=== PATIENT | male | born 1965 | race Caucasian/White ===

== ENCOUNTER 2020-06-26 09:13 | Outpatient (REF) | payer OTHER, SELFPAY ==
[2020-06-26 11:29] LABS: Alanine Aminotransferase 19 U/L (0-40); Albumin Level 4.5 g/dL (3.5-5.0); Alkaline Phosphatase 66 U/L (39-117); Anion Gap 14 (12-20); Aspartate Amino Transferase 18 U/L (5-37); Bilirubin Total 0.4 mg/dL (0.0-1.0); Blood Urea Nitrogen 16 mg/dL (9-16); Carbon Dioxide 27 mmol/L (22-29); Chloride 107 mmol/L (96-108); Cholesterol 197 mg/dL; Estimated Glomerular Filt Rate 60; Glucose Random 105 mg/dL (60-115); HDL Cholesterol 33 mg/dL; LDL Cholesterol Calculated 137 mg/dl; Potassium 4.7 mmol/l (3.3-5.1); Sodium 143 mmol/L (135-145); Total Protein 7.4 g/dL (6.5-8.0); Triglycerides 138 mg/dL
== END 2020-06-26 09:14 | disposition home or self-care (01) ==
LOC: HO.LAB 09:13
PROVIDERS: PCP Internal Medicine; Visit Provider Internal Medicine
DX: Z00.01 Encounter for general adult medical examination with abnormal findings (principal); E78.2 Mixed hyperlipidemia; I10 Essential (primary) hypertension; Z91.14 Patient's other noncompliance with medication regimen
CPT/HCPCS: 36415; 80053; 80061; 84443

== ENCOUNTER 2020-06-28 15:05 | Emergency (ER) | payer OTHER, SELFPAY ==
[2020-06-28 15:11] VITALS: BP 145/93; PULSE 82; RESP 20; TEMP 36.6; O2SAT 100; BMI 30.7
--- NOTE | 2020-06-28 15:28 | PC.NURSE ---
A&O X 3, AMBULATORY WITH STEADY GAIT, CONTINUOUSLY SIPPING WATER STATES ONLY THING THAT TAKES PAIN AWAY, RN OFFERED COLD PACK, DECLINED STATES MAKES PAIN WORSE, HOB ELEVATED, AWAITING EXAM, STATES INJURY OCCURRED 2 DAYS AGO AND HE HIT HIS HEAD SO HARD HE EXPERIENCED LOC
--- NOTE | 2020-06-28 16:03 | CT_ITS ---
EXAMINATION: CT CERVICAL SPINE WITHOUT CONTRAST CLINICAL INFORMATION: Persistent pain following fall 2 days ago. COMPARISON: None TECHNIQUE: Multidetector volumetric CT imaging of the cervical spine is performed without contrast in the axial plane. Additional 2D reformatted coronal and sagittal images are generated on the CT workstation and uploaded to PACS. This CT examination was performed using dose optimization techniques as appropriate, variously including the following: *Automated exposure control *Adjustment of mA and/or kV according to patient size (this includes techniques or standardized protocols for targeted exams where dose is matched to indication/reason for exam; i.e. extremities or head) *Use of iterative reconstruction technique DLP: 601 mGy-cm FINDINGS: There is no vertebral compression fracture, fracture line, spondylolisthesis, or prevertebral soft tissue swelling. The craniocervical junction appears normal. The odontoid appears intact. There is straightening and mild reversal cervical lordosis which may related to muscle spasm. There are mild degenerative disc changes C4-C5 and C5-C6. There is no apical pneumothorax. CT/CT cervical spine wo con IMPRESSION: 1. No acute bony abnormality or prevertebral soft tissue swelling. 2. Mild reversal cervical lordosis. Degenerative disc changes mid cervical spine.
--- NOTE | 2020-06-28 16:03 | CT_ITS ---
EXAMINATION: CT HEAD, NONCONTRAST CT FACIAL BONES CLINICAL INFORMATION: Persistent pain left side since fall 2 days ago. COMPARISON: CT head noncontrast 12/07/2018. TECHNIQUE: Contiguous axial imaging was performed from the skull base to vertex without intravenous administration of contrast. Additional 2-D coronal and sagittal reformatted images are generated on the CT workstation and uploaded to PACS. CT facial bones is also performed in the axial plane with additional 2-D coronal and sagittal reformatted images generated on the CT workstation and uploaded to PACS. These CT examinations were performed using dose optimization techniques as appropriate, variously including the following: *Automated exposure control *Adjustment of mA and/or kV according to patient size (this includes techniques or standardized protocols for targeted exams where dose is matched to indication/reason for exam; i.e. extremities or head) *Use of iterative reconstruction technique DLP: 748 mGy-cm (head) 559 mGy-cm (facial) FINDINGS: Head: There is no intracranial hemorrhage, hematoma, or extra-axial fluid collection. The ventricles are normal in size. There is no hydrocephalus, edema, or mass effect. The millan-white matter differentiation appears symmetric. There is no visible acute territorial infarct or mass lesion. The calvarium appears intact. There is no pneumocephalus or orbital emphysema. The visualized sinuses and middle ears and mastoid air cells show no significant mucosal thickening. There are no air-fluid levels. Facial: There is no fracture. A fine linear lucency superior lateral right orbital roof is likely nutrient canal. There is no adjacent soft tissue swelling either superficially or deep side. Patient's symptoms are on the contralateral left. The orbital rims and floors, zygomatic arches, pterygoid plates, nasal bone appear intact. Mandible intact. The globes and retrobulbar soft tissues are unremarkable. There is some scattered mucosal thickening ethmoid air cells. The sinuses and middle ears and mastoids show no air-fluid levels. CT/CT facial bones wo con IMPRESSION: 1. No acute intracranial abnormality. 2. No air-fluid levels sinuses, middle ears, or mastoid.
--- NOTE | 2020-06-28 16:29 | ED_ITS ---
HPI - General Adult General Chief complaint: General Medical <FILOMENA Andino Last Filed: 06/28/20 17:48> Stated complaint: fall <FILOMENA Andino Last Filed: 06/28/20 17:48> Time Seen by Provider: 06/28/20 15:44 <FILOMENA Andino Last Filed: 06/28/20 17:48> Source: patient <FILOMENA Andino Last Filed: 06/28/20 17:48> Mode of arrival: ambulatory <FILOMENA Andino Last Filed: 06/28/20 17:48> Limitations: other (Very vague and poor historian) <FILOMENA Andino Last Filed: 06/28/20 17:48> History of Present Illness HPI narrative: 55yoM c PMHx of BPH and kidney stones with recent hernia repair presenting to the ED with complaints of left facial pain for the past 2 days after he fell down his basement stairs, hit his head and had LOC for a few seconds. Patient reports persistent pain to the left face/swelling. Denies any preceding symptoms prior to the fall which include any dizziness, headaches, changes in vision, paresthesias, chest pain or shortness of breath. Denies any other symptoms complaints or concerns at this time. Denies any other injuries. Patient being vague about why and how he fell. <FILOMENA Andino Last Filed: 06/28/20 17:48> Related Data Home medications: Previous Rx's Medication Instructions Recorded oxycodone 5 mg PO Q8H PRN #10 tab 06/28/20 <FILOMENA Andino Last Filed: 06/28/20 17:48> Allergies/adverse reactions: Allergies Allergy/AdvReac Type Severity Reaction Status Date / Time codeine Allergy Unknown Verified 01/31/20 00:00 No Known Allergies Allergy Unverified 03/02/20 16:36 [No Known Allergies*] <FILOMENA Andino Last Filed: 06/28/20 17:48> Review of Systems Review of Systems: Constitutional : No changes in activity, No lethargy, No recent prior head injury, No agitation, No increased fussiness ENT/Mouth : No Ear Pain, No Nasal discharge/drainage Eyes: No Eye Pain, No Swelling, No Redness, No Foreign Body, No Vision Changes Cardiovascular : No Chest Pain, No SOB Respiratory : No Cough Gastrointestinal : No Nausea, No Vomiting, No abdominal Pain Genitourinary : No Dysuria, No Urinary Frequency, No Urinary Incontinence, No Urgency, No Flank Pain Musculoskeletal : + joint pain, No neck stiffness, No back pain/injury Skin : No lacerations Neuro : No unsteady gait, No Paresthesias, + Loss of Consciousness, No altered mental status, No Headache <FILOMENA Andino - Last Filed: 06/28/20 17:48> Yes all other systems are reviewed and are negative <FILOMENA Andino - Last Filed: 06/28/20 17:48> [facility] Past Medical History Attestation statement: The following information was validated with the patient. <FILOMENA Andino - Last Filed: 06/28/20 17:48> Social History Social History: Social History Advance Directives: No Advance Directives Information Provided: Yes <FILOMENA Andino - Last Filed: 06/28/20 17:48> Physical Exam Vital Signs: Vital Signs: Last Vital Signs Temp 97.9 F 06/28/20 15:11 Pulse 70 06/28/20 17:25 Resp 16 06/28/20 17:25 BP 136/91 H 06/28/20 17:25 Pulse Ox 98 06/28/20 17:25 Body Mass Index 30.7 Vital signs have been reviewed as normal and appeared to be correct. Blood pressure normal. Heart rate normal. Respiration rate normal. Temperature normal. Oxygen saturation normal. <FILOMENA Andino - Last Filed: 06/28/20 17:48> Vital Signs: Last Vital Signs Temp 97.9 F 06/28/20 15:11 Pulse 70 06/28/20 17:25 Resp 16 06/28/20 17:25 BP 136/91 H 06/28/20 17:25 Pulse Ox 98 06/28/20 17:25 Body Mass Index 30.7 <Tong Mejias MD - Last Filed: 07/07/20 00:00> Appearance: Alert. Oriented X3. No acute distress. Head: Patient with tenderness to palpation to left maxillary/sinuses/nostril with mild contusion abrasion noted. Otherwise the rest of the facial exam is within normal limits. Able to rotate head bilaterally. Eyes: PERRLA. EOMI. No nystagmus noted. Conjunctiva and sclera normal. Eyelids normal. Corneal reflex normal. ENT: EAC normal. TM's Normal. No septal hematoma or hemotympanum noted. Hearing normal. Pharynx normal. Uvula midline. tongue midline. Moist mucous membranes. No trismus noted. No drooling noted. No muffled voice noted. Neck: Normal inspection. Neck supple. FROM. No adenopathy. No meningeal signs. CVS: Normal heart rate and rhythm. Heart sound normal. No murmurs noted. Pulses normal throughout. Respiratory: No respiratory distress. Painless inspiration. Breath sounds normal. No wheezes/rales/rhonchi noted. Chest nontender. No accessory muscle usage noted or decreased air movement noted. Back: Full range of motion noted. Skin: Skin warm and dry. Normal skin color. Normal skin turgor. No r ashes/lesions/lacerations noted. Extremities: No lower extremity edema. Extremities exhibit normal range of motion. Extremities nontender. Able to shrug shoulders bilaterally and keep up against resistance. Neuro: Oriented X 3. No motor deficit. No sensory deficit. Reflexes normal. Moving all extremities. No focal motor deficits. Cranial nerves II-XI intact bilaterally. Facial strength normal. Normal cognition. Speech normal. Gait normal. Strength 5/5 throughout. No pronator drift. No tremor noted. No fasciculations noted. Muscle tone normal throughout. <FILOMENA Andino - Last Filed: 06/28/20 17:48> Course Course Course Narrative: 55-year-old male presenting to the ED after a fall down his stairs in the basement with loss of consciousness for a few seconds was not witnessed. Reports persistent pain to the left face around the eye/cheek/nose area. Denies any other injuries complaints or concerns at this time. Reports that he took Percocet prior to arrival and no symptomatic relief that is why he came here. He reports that the pain is relief with drinking water. Worse with everything. Denies any other injuries complaints or concerns at this time. - patient is alert and oriented x3. Not in any acute distress. No focal we akness noted. - basic labs obtained and all within normal limits. CT scan of facial/brain/cervical spine revealed chronic changes no acute processes noted. - I explained to the patient that he had most likely contusions to the face and no broken bones although patient was very upset and reported that there is no way that he needs morphine for his pain I explained to him that I gave him a dose of morphine while he was here in the ER but I will not be giving him a prescription for morphine as he does not have any broken bones he has most likely a contusion. Therefore we would be discharging him with oxycodone. Patient was not happy with this although he understood and agree with the plan. Instructed patient to return if any new or worsening symptoms to follow up with primary care provider. Patient understands agrees the plan. <FILOMENA Andino - Last Filed: 06/28/20 17:48> I have reviewed the chart <Tong Mejias MD - Last Filed: 07/07/20 00:00> Medical Decision Making Lab Data Result diagrams: : 06/28/20 16:29 06/28/20 16:29 <FILOMENA Andino - Last Filed: 06/28/20 17:48> Labs: Lab Results 06/28/20 06/28/20 06/28/20 Range/Units 16:29 16:29 16:29 WBC 7.6 (4.8-10.8) X10*3/uL RBC 4.54 L (4.60-5.80) X10*6/uL Hgb 13.5 L (14.0-18.0) g/dl Hct 40.5 L (42-52) % MCV 89.2 (80-98) fL MCH 29.7 (27.0-33.0) pg MCHC 33.3 (31.0-36.0) g/dl RDW 12.6 (11.0-16.0) % Plt Count 251 (160-400) X10*3/uL MPV 10.4 (9.4-12.4) fL Immature Gran % (Auto) 0.3 (0.0-0.4) % Neut % (Auto) 56.8 (45-73) % Lymph % (Auto) 33.1 (20-40) % Gonzales % (Auto) 7.9 (2-11) % Eos % (Auto) 1.6 (0-4) % Baso % (Auto) 0.3 (0-2) % Lymph # (Auto) 2.5 (1.2-4.9) X10*3/uL Gonzales # (Auto) 0.6 (0.1-1.2) X10*3/uL Eos # (Auto) 0.1 (0.0-0.4) X10*3/uL Baso # (Auto) 0.0 (0.0-0.2) X10*3/uL Abs Immat Gran (auto) 0.02 (0.00-0.03) X10*3/uL Absolute Neuts (auto) 4.3 (2.0-8.3) X10*3/uL Absolute Nucleated RBC 0.000 (0.0-0.012) X10*3/uL Nucleated RBC % (auto) 0.0 (0.0-0.2) /100WBC PT 12.2 (10.8-13.0) SEC INR 1.0 (0.9-1.1) Sodium 142 (135-145) mmol/L Potassium 4.6 (3.3-5.1) mmol/l Chloride 105 (96-108) mmol/L Carbon Dioxide 30 H (22-29) mmol/L Anion Gap 12 (12-20) BUN 18 H (9-16) mg/dL Creatinine 1.33 (0.5-1.4) mg/dL Estim Creat Clear Calc 76.4 Estimated GFR 56 Random Glucose 88 (60-115) mg/dL Calcium 9.1 (8.4-10.2) mg/dL Magnesium 2.2 (1.6-2.6) mg/dL <FILOMENA Andino - Last Filed: 06/28/20 17:48> Lab Results 06/28/20 06/28/20 06/28/20 Range/Units 16:29 16:29 16:29 WBC 7.6 (4.8-10.8) X10*3/uL RBC 4.54 L (4.60-5.80) X10*6/uL Hgb 13.5 L (14.0-18.0) g/dl Hct 40.5 L (42-52) % MCV 89.2 (80-98) fL MCH 29.7 (27.0-33.0) pg MCHC 33.3 (31.0-36.0) g/dl RDW 12.6 (11.0-16.0) % Plt Count 251 (160-400) X10*3/uL MPV 10.4 (9.4-12.4) fL Immature Gran % (Auto) 0.3 (0.0-0.4) % Neut % (Auto) 56.8 (45-73) % Lymph % (Auto) 33.1 (20-40) % Gonzales % (Auto) 7.9 (2-11) % Eos % (Auto) 1.6 (0-4) % Baso % (Auto) 0.3 (0-2) % Lymph # (Auto) 2.5 (1.2-4.9) X10*3/uL Gonzales # (Auto) 0.6 (0.1-1.2) X10*3/uL Eos # (Auto) 0.1 (0.0-0.4) X10*3/uL Baso # (Auto) 0.0 (0.0-0.2) X10*3/uL Abs Immat Gran (auto) 0.02 (0.00-0.03) X10*3/uL Absolute Neuts (auto) 4.3 (2.0-8.3) X10*3/uL Absolute Nucleated RBC 0.000 (0.0-0.012) X10*3/uL Nucleated RBC % (auto) 0.0 (0.0-0.2) /100WBC PT 12.2 (10.8-13.0) SEC INR 1.0 (0.9-1.1) Sodium 142 (135-145) mmol/L Potassium 4.6 (3.3-5.1) mmol/l Chloride 105 (96-108) mmol/L Carbon Dioxide 30 H (22-29) mmol/L Anion Gap 12 (12-20) BUN 18 H (9-16) mg/dL Creatinine 1.33 (0.5-1.4) mg/dL Estim Creat Clear Calc 76.4 Estimated GFR 56 Random Glucose 88 (60-115) mg/dL Calcium 9.1 (8.4-10.2) mg/dL Magnesium 2.2 (1.6-2.6) mg/dL <Tong Mejias MD - Last Filed: 07/07/20 00:00> Imaging Data Brain/facial bones CT scan: Attestation: I personally reviewed and interpreted this imaging study as follows: <FILOMENA Andino - Last Filed: 06/28/20 17:48> Radiologist's impression: FINDINGS: Head: There is no intracranial hemorrhage, hematoma, or extra-axial fluid collection. The ventricles are normal in size. There is no hydrocephalus, edema, or mass effect. The millan-white matter differentiation appears symmetric. There is no visible acute territorial infarct or mass lesion. The calvarium appears intact. There is no pneumocephalus or orbital emphysema. The visualized sinuses and middle ears and mastoid air cells show no significant mucosal thickening. There are no air-fluid levels. Facial: There is no fracture. A fine linear lucency superior lateral right orbital roof is likely nutrient canal. There is no adjacent soft tissue swelling either superficially or deep side. Patient's symptoms are on the contralateral left. The orbital rims and floors, zygomatic arches, pterygoid plates, nasal bone appear intact. Mandible intact. The globes and retrobulbar soft tissues are unremarkable. There is some scattered mucosal thickening ethmoid air cells. The sinuses and middle ears and mastoids show no air-fluid levels. CT/CT facial bones wo con IMPRESSION: 1. No acute intracranial abnormality. 2. No air-fluid levels sinuses, middle ears, or mastoid. <FILOMENA Andino - Last Filed: 06/28/20 17:48> Cervical spine CT: Attestation: I personally reviewed and interpreted this imaging study as follows: <FILOMENA Andino - Last Filed: 06/28/20 17:48> Radiologist's impression: FINDINGS: There is no vertebral compression fracture, fracture line, spondylolisthesis, or prevertebral soft tissue swelling. The craniocervical junction appears normal. The odontoid appears intact. There is straightening and mild reversal cervical lordosis which may related to muscle spasm. There are mild degenerative disc changes C4-C5 and C5-C6. There is no apical pneumothorax. CT/CT cervical spine wo con IMPRESSION: 1. No acute bony abnormality or prevertebral soft tissue swelling. 2. Mild reversal cervical lordosis. Degenerative disc changes mid cervical spine. <FILOMENA Andino - Last Filed: 06/28/20 17:48> Discharge Plan Discharge Clinical Impression: Fall, Contusion of face <FILOMENA Andino - Last Filed: 06/28/20 17:48> Patient Disposition: Home, Self-Care <FILOMENA Andino - Last Filed: 06/28/20 17:48> Instructions: Contusion in Adults (ED), Fall Prevention (ED) <FILOMENA Andino - Last Filed: 06/28/20 17:48> Prescriptions: New oxycodone 5 mg tablet 5 mg PO Q8H PRN (Reason: pain) Qty: 10 RF: 0 <FILOMENA Andino - Last Filed: 06/28/20 17:48> Referrals: Ariana Montgomery MD [Primary Care Provider] - 2 days <FILOMENA Andino - Last Filed: 06/28/20 17:48> Interventions: ED Discharge Assessment Last Done: 06/28/20 18:01 <FILOMENA Andino - Last Filed: 06/28/20 17:48> Discharge Date/Time: 06/28/20 18:03 <FILOMENA Andino - Last Filed: 06/28/20 17:48> Print Language: [place] <FILOMENA Andino - Last Filed: 06/28/20 17:48>
[2020-06-28 16:37] VITALS: RESP 16
[2020-06-28] MEDS: Morphine Sulfate 4 MG/ML CARTRIDGE IVPUSH (16:37)
[2020-06-28] MEDS: ondansetron HCL 4 MG/2 ML VIAL IVPUSH (16:37)
[2020-06-28 16:38] LABS: MANUAL DIFF FLAG NO
[2020-06-28 16:46] LABS: Prothrombin Time 12.2 SEC (10.8-13.0)
[2020-06-28 16:48] LABS: Basophils Percent Auto 0.3 % (0-2); Eosinophils Absolute Auto 0.1 X10*3/uL (0.0-0.4); Eosinophils Percent Auto 1.6 % (0-4); Hematocrit 40.5 % (42-52); Hemoglobin 13.5 g/dl (14.0-18.0); Imm Gran Abs Auto 0.02 X10*3/uL (0.00-0.03); Imm Gran Pct Auto 0.3 % (0.0-0.4); Lymphocytes Absolute Auto 2.5 X10*3/uL (1.2-4.9); Lymphocytes Percent Auto 33.1 % (20-40); Mean Corpuscular HGB Conc 33.3 g/dl (31.0-36.0); Mean Corpuscular Hemoglobin 29.7 pg (27.0-33.0); Mean Corpuscular Volume 89.2 fL (80-98); Mean Platelet Volume 10.4 fL (9.4-12.4); Monocytes Absolute Auto 0.6 X10*3/uL (0.1-1.2); Monocytes Percent Auto 7.9 % (2-11); Neutrophils Absolute Auto 4.3 X10*3/uL (2.0-8.3); Neutrophils Percent Auto 56.8 % (45-73); Platelet Count 251 X10*3/uL (160-400); Red Blood Count 4.54 X10*6/uL (4.60-5.80); Red Cell Distribution Width 12.6 % (11.0-16.0); White Blood Count 7.6 X10*3/uL (4.8-10.8)
[2020-06-28 17:03] LABS: Anion Gap 12 (12-20); Blood Urea Nitrogen 18 mg/dL (9-16); Calcium 9.1 mg/dL (8.4-10.2); Carbon Dioxide 30 mmol/L (22-29); Chloride 105 mmol/L (96-108); Creatinine Clr Calc Pharmacy 76.4; Estimated Glomerular Filt Rate 56; Glucose Random 88 mg/dL (60-115); Magnesium 2.2 mg/dL (1.6-2.6); Potassium 4.6 mmol/l (3.3-5.1); Sodium 142 mmol/L (135-145)
[2020-06-28 17:25] VITALS: BP 136/91; PULSE 70; RESP 16; O2SAT 98
== END 2020-06-28 18:03 | disposition home or self-care (01) ==
PROVIDERS: Physician Assistant Medical; Emergency Provider Emergency Medicine; PCP Internal Medicine
DX: S00.83XA Contusion of other part of head, initial encounter (principal); S00.81XA Abrasion of other part of head, initial encounter; W10.8XXA Fall (on) (from) other stairs and steps, initial encounter; Y93.89 Activity, other specified; Y92.018 Other place in single-family (private) house as the place of occurrence of the external cause; Y99.9 Unspecified external cause status
CPT/HCPCS: 36415; 70450; 70486; 72125; 80048; 83735; 85025; 85610; 96374; 96375; 99284; J2270; J2405

== ENCOUNTER 2021-06-11 15:46 | Emergency (ER) | payer OTHER, SELFPAY ==
--- NOTE | ~2021-06-11 | XR_ITS ---
EXAMINATION: XR CHEST CLINICAL INFORMATION: Right-sided rib fractures. COMPARISON: Chest radiograph dated from 12/07/2018. TECHNIQUE: 2 views of the chest were obtained. FINDINGS: Normal appearance of the cardiomediastinal silhouette. Clear lungs. No pleural effusions or pneumothorax. Acutely displaced rib fracture involving the right ninth rib. XR/XR chest 2V IMPRESSION: No acute cardiopulmonary findings. Acutely displaced right-sided ninth rib fracture.
[2021-06-11 15:54] VITALS: BP 160/99; PULSE 110; RESP 20; TEMP 36.7; O2SAT 99; BMI 30.7
--- NOTE | 2021-06-11 22:46 | ED.GENADULT ---
HPI - General Adult General Chief complaint: General Medical Stated complaint: CHEST PAIN FELL OFF ROOT 2WKS AGO Time Seen by Provider: 06/11/21 22:29 Source: patient Mode of arrival: ambulatory Limitations: no limitations History of Present Illness HPI narrative: 55 Year old male Past medical history significant for BPH, and kidney stones presents to the emergency department with complaints of right chest/flank pain X20 days. Patient tells me he fell off A roof earlier this month, he was initially seen in the hospital in [place] and admited there for 7 days. One day after discharge he flew home. Day after he went to [facility]. He tells me he was seen last week at [facility] where he was admitted and he was told that he had 7 broken ribs. He was in the hospital for 3 days. He was discharged on oxycodone however, he tells me is unable to take this medicine as he is not tolerating it well it causes him to feel drowsy and gives him an upset stomach. He tells me that today he reached out to his primary care provider who prescribed him diclofenac, he tells me that this pain made his chest pain worse. And it is not helping him at all. He also reports discomfort to his left biceps tells me this is also from the fall. Since the incident he reports no further trauma. He denies new trauma, shortness of breath, nausea, vomiting, diarrhea, abdominal pain. Not on blood thinners. No cardiac history. Family HX of heartattack- father older age had a heart attack, unsure of exact age. Onset (ago): day(s) (20) Location: chest, back (/flank) and right Radiation: non-radiation Severity: severe Severity scale (1-10): 10 Quality: sharp Pain Consistency: constant Relieving factors: immobilization Exacerbating factors: movement Associated symptoms: denies other symptoms Treatments prior to arrival: NSAID Related Data Previous Rx's Medication Instructions Recorded oxycodone 5 mg tablet 5 mg PO Q8H PRN #10 tab 06/28/20 cyclobenzaprine 10 mg tablet 10 mg PO BEDTIME PRN #7 tab 06/11/21 hydrocodone 5 mg-acetaminophen 300 1 tab PO Q4-6H PRN 5 Days #14 tab 06/12/21 mg tablet lidocaine 5 % topical patch 1 patch TOPICAL DAILY PRN #15 ea 06/12/21 Allergies Allergy/AdvReac Type Severity Reaction Status Date / Time codeine Allergy Unknown Unknown Verified 06/11/21 15:52 Review of Systems Review of Systems: Constitutional : No Weight loss, No Fever, No Chills, No Fatigue, No Malaise ENT/Mouth : No sore throat, No Rhinorrhea Eyes: No Eye Pain, No Swelling, No Redness Cardiovascular : No Chest Pain, + chest wall pain, No SOB, No Dyspnea on Exertion, No Orthopnea, No Edema, No Palpitations Respiratory : No Cough, No Sputum, No Wheezing Gastrointestinal : No Nausea, No Vomiting, No Diarrhea, No Constipation, No abdominal Pain, No Hematochezia, No Melena Genitourinary : No Dysuria, No Urinary Frequency, No Hematuria, Musculoskeletal : No joint pain, No Myalgias, No Joint Swelling, + flank pain Skin : No Skin Lesions, No rash Neuro : No Weakness, No Numbness, No Dizziness, No Headache All other systems reviewed and are negative Yes all other systems are reviewed and are negative [facility] Past Medical History Attestation statement: The following information was validated with the patient. Source: old records reviewed and nursing notes reviewed Medical History Rib fractures Social History Social History Advance Directives: No Advance Directives Information Provided: Yes Physical Exam Vital Signs: Vital Signs: Last Vital Signs Temp 98.2 F 06/12/21 00:24 Pulse 93 06/12/21 00:24 Resp 20 06/12/21 00:24 BP 160/99 H 06/11/21 15:54 Pulse Ox 100 06/12/21 00:24 BMI result Body Mass Index 30.7 Patient noted to be hypertensive and tachycardic. Appearance: Alert.? Oriented X3.? No acute distress.?+patient agitated, pacing around the room Head: Normocephalic, atraumatic, no step-offs or deformities Eyes: Pupils equal, round and reactive to light.? ENT: Pharynx normal.? Neck: Normal inspection.? Neck supple.? CVS: Normal heart rate and rhythm.? Pulses normal.?+ pain with palpation of right anterior chest wall. Respiratory: No respiratory distress.? Breath sounds normal.? Abdomen: Soft and nontender.? Skin: Skin warm and dry.? Normal skin color.? Normal skin turgor.?No bruising noted anywhere on body no evident signs of trauma. Extremities: No lower extremity edema.? No calf ttp. 5/5 strength to bilateral upper and lower extremities Back: No midline tenderness, no C-spine tenderness, full range of motion, no CVA tenderness bilaterally Neuro: Oriented X 3.? No motor deficit.? No sensory deficit. Course Reevaluation(s) Reevaluation #1: Reached out to [facility] medical records to try and obtain records. Chest x-ray shows no acute Cardiopulmonary findings. It shows an acutely displaced right-sided 9th rib fracture. Time: 22:54 Reevaluation #2: Obtain records from [facility] which confirmed that patient had acute fractures involving the right lateral 7th, 9th and 10th ribs. They also obtained a CT scan which showed a small right pleural effusion, they could not rule out hemo thorax however after a while radiology determined that it was unlikely a hemothorax. They ruled out PE as well. No pnuemothorax. Patient presented to [facility] with a similar presentation chest pain, shortness of breath. He was given IV morphine, D/C on Oxycodone 5 mg He asked our tech here today for IV dilauded and tells us that it helped for a tooth infection He continues to ask me for something stronger for pain Requesting his [facility] records, I advised him to call medical records from [facility] Telling me he feels something stabbing him. No need for CT at this time patient is saturating well on RA, normal pulse at this time, no tachypnea, unlikley PE. No calf tenderness. Labs no leukocytosis. No anemia. Plts elevated slightly. Alk phos slightly elevated however, patient reports no abdominal pain. Trop neagtive. Time: 00:51 Reevaluation #3: Dr. Styles in room evaluating patient. Time: 01:18 Additional Reevaluation(s): 0129 Dr. Styles is doing a rib wrapped with an Refugio bandage. He recommends Vicodin for 5 days and PCP follow-up. I have advised the patient to return to the emergency department with new or worsening symptoms and follow-up with his PCP. I attest that I have reviewed patients [employer], and at the time prescribing the patient a controlled substance is appropriate based off of patients diagnosis and treatment plan. Medical Decision Making MDM Narrative Medical decision making narrative: 2251 55 yo M pmhx BPH,renal stone presents w/ complaints of right anterior chest wall pain and right sided flank pain X20 days s/p falling off a roof on 05/21/21. Per patient patient he was was recently at [facility] admitted for 3 days and dx with 7 rib fx. Started on diclofenac today tells me it makes his pain worse. Upon PE patient noted to be hypertensive and tachycardia likely secondary to pain. Patient appears well, ambulating with a steady gait no ataxia. No accessory muscle use. He reports pain with palpation of right anterior chest wall. No Flail chest. Breathsounds heard bilaterally, clear lungs. RRR. Per [employer] patient filled oxycodone 5 mg #12 on 06/01/21 I attest that I have reviewed patients [employer]PAT, and at the time prescribing the patient a controlled substance is appropriate based off of patients diagnosis and treatment plan. Plan Xray, basic labs, trop, EKG Will rule out ACS, patient tells me he has no cardia history but at an old age his father had a heart attack Medical Records Medical records reviewed: Yes I reviewed the patient's medical records. Lab Data Lab results reviewed: Yes I reviewed the patient's lab results. Result diagrams: 06/12/21 00:29 06/12/21 00:29 Labs: Lab Results 06/12/21 06/12/21 06/12/21 Range/Units 00:29 00:29 00:29 WBC 8.7 (4.8-10.8) X10*3/uL RBC 4.69 (4.60-5.80) X10*6/uL Hgb 14.0 (14.0-18.0) g/dl Hct 41.0 L (42.0-52.0) % MCV 87.4 (80.0-98.0) fL MCH 29.9 (27.0-33.0) pg MCHC 34.1 (31.0-36.0) g/dl RDW 12.9 (11.0-16.0) % Plt Count 410 H (160-400) X10*3/uL MPV 9.5 (9.4-12.4) fL Immature Gran % (Auto) 0.2 (0.0-0.4) % Neut % (Auto) 57.6 (45-73) % Lymph % (Auto) 31.6 (20-40) % [place] % (Auto) 9.0 (2-11) % Eos % (Auto) 1.1 (0-4) % Baso % (Auto) 0.5 (0-2) % Lymph # (Auto) 2.8 (1.2-4.9) X10*3/uL [place] # (Auto) 0.8 (0.1-1.2) X10*3/uL Eos # (Auto) 0.1 (0.0-0.4) X10*3/uL Baso # (Auto) 0.0 (0.0-0.2) X10*3/uL Abs Immat Gran (auto) 0.02 (0.00-0.03) X10*3/uL Absolute Neuts (auto) 5.0 (2.0-8.3) x10*3/uL Absolute Nucleated RBC 0.000 (0.0-0.012) X10*3/uL Nucleated RBC % (auto) 0.0 (0.0-0.2) /100WBC Sodium 145 (135-145) mmol/L Potassium 4.4 (3.3-5.1) mmol/L Chloride 107 (96-108) mmol/L Carbon Dioxide 30 H (22-29) mmol/L Anion Gap 12 (12-20) BUN 21 H (9-16) mg/dL Creatinine 1.18 (0.5-1.4) mg/dL Estim Creat Clear Calc 86.1 Estimated GFR > 60 Random Glucose 107 (60-115) mg/dL Calcium 10.3 H D (8.4-10.2) mg/dL Total Bilirubin 0.4 (0.0-1.0) mg/dL AST 14 (5-37) U/L ALT 27 (0-40) U/L Alkaline Phosphatase 179 H D (39-117) U/L Troponin I High Sens 5.9 (<3.5-35.0) ng/L Total Protein 8.2 H (6.5-8.0) g/dL Albumin 4.8 (3.5-5.0) g/dL Imaging Data Chest x-ray: Attestation: I personally reviewed and interpreted this imaging study as follows: Radiologist's impression: FINDINGS: Normal appearance of the cardiomediastinal silhouette. Clear lungs. No pleural effusions or pneumothorax. Acutely displaced rib fracture involving the right ninth rib. XR/XR chest 2V IMPRESSION: No acute cardiopulmonary findings. Acutely displaced right-sided ninth rib fracture. Critical Care Time Critical Care Time Critical Care Time: Yes Total Critical Care Time: 45 Attestation: I attest to this time spent taking care of the patient obtaining history, physical, interpreting laboratory studies and imaging. Obtaining records from [facility] and reviewing these records. Educating patient on diagnosis, going over the dangers of opiate use. Educating patient. Speaking to my attending about this case. Discharge Plan Discharge Clinical Impression: Chest wall pain, Flank pain, Strain of left biceps Patient Disposition: Home, Self-Care Instructions: Muscle Strain (ED), Flank Pain (ED), Chest Wall Pain (ED) Additional Instructions: Take your medications as prescribed. If you were prescribed antibiotics today, it is important that you take your medication to their entirety, do not skip any doses, do not finish them early. Follow-up with your primary care provider this week. Return to the emergency department with new or worsening symptoms. In case of emergency call 911 To obtain medical records from this hospital and from [facility] please call the medical record department, where you can obtain your records. Your x-ray today showed 1 rib fracture at the right 9th rib Cyclobenzaprine is a muscle relaxer that has been sent to your pharmacy, please take this muscle relaxer at bedtime. Please do not drive while on this medication as it can make you drowsy. Stop taking diclofenac. Take ibuprofen instead I attest that I have reviewed patients [employer]PAT, and at the time prescribing the patient a controlled substance is appropriate based off of patients diagnosis and treatment plan. Prescriptions: New cyclobenzaprine 10 mg tablet 10 mg PO BEDTIME PRN (Reason: muscle spasm) Qty: 7 RF: 0 lidocaine 5 % adhesive patch,medicated 1 patch topical DAILY PRN (Reason: pain) Qty: 15 RF: 0 hydrocodone-acetaminophen 5-300 mg tablet 1 tab PO Q4-6H PRN (Reason: pain) 5 Days Qty: 14 RF: 0 No Action oxycodone 5 mg tablet 5 mg PO Q8H PRN (Reason: pain) Qty: 10 RF: 0 Referrals: Ariana Montgomery MD [Primary Care Provider] - 2 days Stand Alone Forms: Work/School Release
--- NOTE | 2021-06-11 23:10 | ECG_ITS ---
Test Reason : chest pain Blood Pressure : / mmHG Vent. Rate : 084 BPM Atrial Rate : 084 BPM P-R Int : 130 ms QRS Dur : 090 ms QT Int : 360 ms P-R-T Axes : 037 -19 000 degrees QTc Int : 425 ms Normal sinus rhythm Normal ECG When compared with ECG of 02-DEC-2019 18:24, No significant change was found Referred By: Marisol Bernstein Electronically Signed By:Huseyin Montes De Oca
[2021-06-12 00:24] VITALS: PULSE 93; RESP 20; TEMP 36.8; O2SAT 100
[2021-06-12 00:36] LABS: Basophils Percent Auto 0.5 % (0-2); Eosinophils Absolute Auto 0.1 X10*3/uL (0.0-0.4); Eosinophils Percent Auto 1.1 % (0-4); Imm Gran Abs Auto 0.02 X10*3/uL (0.00-0.03); Imm Gran Pct Auto 0.2 % (0.0-0.4); Lymphocytes Absolute Auto 2.8 X10*3/uL (1.2-4.9); Lymphocytes Percent Auto 31.6 % (20-40); MANUAL DIFF FLAG NO; Mean Corpuscular HGB Conc 34.1 g/dl (31.0-36.0); Mean Corpuscular Hemoglobin 29.9 pg (27.0-33.0); Mean Corpuscular Volume 87.4 fL (80.0-98.0); Mean Platelet Volume 9.5 fL (9.4-12.4); Monocytes Absolute Auto 0.8 X10*3/uL (0.1-1.2); Neutrophils Percent Auto 57.6 % (45-73); Platelet Count 410 X10*3/uL (160-400); Red Blood Count 4.69 X10*6/uL (4.60-5.80); Red Cell Distribution Width 12.9 % (11.0-16.0); White Blood Count 8.7 X10*3/uL (4.8-10.8)
[2021-06-12 00:56] LABS: Alanine Aminotransferase 27 U/L (0-40); Albumin Level 4.8 g/dL (3.5-5.0); Alkaline Phosphatase 179 U/L (39-117); Anion Gap 12 (12-20); Aspartate Amino Transferase 14 U/L (5-37); Bilirubin Total 0.4 mg/dL (0.0-1.0); Blood Urea Nitrogen 21 mg/dL (9-16); Calcium 10.3 mg/dL (8.4-10.2); Carbon Dioxide 30 mmol/L (22-29); Chloride 107 mmol/L (96-108); Creatinine Clr Calc Pharmacy 86.1; Estimated Glomerular Filt Rate > 60; Glucose Random 107 mg/dL (60-115); Potassium 4.4 mmol/L (3.3-5.1); Sodium 145 mmol/L (135-145); Total Protein 8.2 g/dL (6.5-8.0); Troponin-I High Sensitivity 5.9 ng/L (<3.5-35.0)
== END 2021-06-12 03:10 | disposition home or self-care (01) ==
LOC: HO.ED 23:58
PROVIDERS: Physician Assistant; Emergency Provider Emergency Medicine Emergency Medical Services; PCP Internal Medicine
DX: R07.89 Other chest pain (principal); R10.9 Unspecified abdominal pain; S46.212A Strain of muscle, fascia and tendon of other parts of biceps, left arm, initial encounter; S22.41XD Multiple fractures of ribs, right side, subsequent encounter for fracture with routine healing; W13.2XXA Fall from, out of or through roof, initial encounter; Y93.9 Activity, unspecified; Y92.9 Unspecified place or not applicable; Y99.9 Unspecified external cause status; Z87.442 Personal history of urinary calculi
CPT/HCPCS: 36415; 71046; 80053; 84484; 85025; 93005; 99283

== ENCOUNTER 2022-01-16 03:34 | Emergency (ER) | payer OTHER, SELFPAY ==
--- NOTE | ~2022-01-16 | XR_ITS ---
EXAMINATION: XR CHEST CLINICAL INFORMATION: Cough COMPARISON: None. TECHNIQUE: Single PA view FINDINGS: Normal symmetric lung volumes. No parenchymal consolidation. No pleural effusion. No pneumothorax. Cardiomediastinal silhouette and pulmonary vascularity are within normal limits. No acute osseous abnormalities. XR/XR chest 1V IMPRESSION: No acute pulmonary findings
[2022-01-16 03:39] VITALS: BP 139/96; PULSE 81; RESP 16; TEMP 37.1; O2SAT 97; BMI 30.7
[2022-01-16 03:49] VITALS: BP 146/99; PULSE 83; RESP 14; TEMP 36.9; O2SAT 99
--- NOTE | 2022-01-16 04:04 | ED.GENADULT ---
HPI - General Adult General Chief complaint: Fever Stated complaint: Bodyaches/Fever Time Seen by Provider: 01/16/22 04:02 Source: patient and family ( Spouse) Mode of arrival: ambulatory Limitations: no limitations History of Present Illness HPI narrative: 56-year-old male came in for evaluation of fever, chills, body ache, nonproductive coughing. No sick contacts, no recent travel, no CP, no SOB. Related Data Previous Rx's Medication Instructions Recorded oxycodone 5 mg tablet 5 mg PO Q8H PRN pain #10 tabs 06/28/20 cyclobenzaprine 10 mg tablet 10 mg PO BEDTIME PRN muscle spasm 06/11/21 #7 tabs hydrocodone 5 mg-acetaminophen 300 1 tab PO Q4-6H PRN pain 5 days #14 06/12/21 mg tablet tabs lidocaine 5 % topical patch 1 patch topical DAILY PRN pain #15 06/12/21 ea albuterol sulfate 90 mcg/actuation 1 inh inhalation QID PRN shortness 01/16/22 aerosol inhaler (ProAir HFA) of breath or wheezing #8.5 grams azithromycin 250 mg tablet See Rx Instructions PO .COMPLEX #6 01/16/22 (Zithromax Z-Prabhjot) tabs prednisone 10 mg tablet 10 mg PO BID #10 tabs 01/16/22 Allergies Allergy/AdvReac Type Severity Reaction Status Date / Time codeine Allergy Unknown Unknown Verified 07/18/21 14:47 Review of Systems Review of Systems: All other systems are reviewed and are negative Constitutional: Reports as per HPI and Reports no additional constitutional complaints Eyes: Reports as per HPI and Reports no additional eye complaints Reports system reviewed and no additional complaints, except as documented Cardiovascular: Reports as per HPI and Reports no additional cardiovascular complaints Respiratory: Reports as per HPI and Reports no additional respiratory complaints Gastrointestinal: Reports as per HPI and Reports no additional gastrointestinal complaints Genitourinary: Reports no additional female genitourinary complaints Musculoskeletal: Reports no additional musculoskeletal complaints Skin/Breast: Reports system reviewed and no additional complaints, except as docu Psychiatric: Reports no additional psychiatric complaints Endocrine: Reports no additional endocrine complaints Hematologic/Lymphatic: Reports no additional hematologic/lymphatic complaints Allergic/Immunologic: Reports no additional allergic/immunologic complaints Reports system reviewed and no additional complaints, except as documented and Reports Abnormal speech present [facility] Past Medical History Medical History Rib fractures Social History Social History Alcohol intake: never Patient Tobacco Use Status: Never used Tobacco Use of substances other than those prescribed or required for medical reasons: Yes Substance Use Type: Marijuana Substance Use Frequency: Occasionally Advance Directives: No Physical Exam ED Vital Signs: Vital Signs - 24 hr 01/16/22 03:39 01/16/22 03:49 Temperature 98.8 F 98.4 F Pulse Rate 81 83 Respiratory Rate 16 14 Blood Pressure 139/96 H 146/99 H Pulse Oximetry 97 99 Oxygen Delivery Method Room Air Room Air BMI result Body Mass Index 30.7 vital signs have been reviewed as appeared to be correct. Blood pressure normal. Heart rate normal. Respiration rate normal. Temperature normal. Oxygen saturation normal. Appearance: Alert. Oriented X3. No acute distress. Head: Normal external exam. Normocephalic. Atraumatic. No Cadet signs noted. No raccoon eyes noted Eyes: PERRLA. EOMI. Conjunctiva and sclera normal. Eyelids normal. ENT: TM's Normal. Pharynx normal. Uvula midline. Moist mucous membranes. No trismus noted. No drooling noted. No muffled voice noted. Neck: Normal inspection. Neck supple. FROM. No adenopathy. Thyroid Normal. No meningeal signs. No neck mass noted. CVS: Normal heart rate and rhythm. Heart sound normal. No murmurs noted. Pulses normal throughout. Respiratory: No respiratory distress. Painless inspiration. Breath sounds normal. expiratory wheezing with prolonged expiration. Chest nontender. No accessory muscle usage noted or decreased air movement noted. Abdomen: Soft and nontender. Bowel sounds normal in all 4 quadrants. No distention noted. No organomegaly noted. No visible injury noted. Back: No CVA tenderness. Full range of motion noted. Skin: Skin warm and dry. Normal skin color. Normal skin turgor. No rashes/lesions/lacerations noted. Extremities: No lower extremity edema. Extremities exhibit normal range of motion. Extremities nontender. Neuro: Oriented X 3. Cranial nerve exam: II-XII are grossly intact No motor deficit. No sensory deficit. Reflexes normal. Course Course Course Narrative: 56-year-old male came in with coughing physical exam and history are consistent with acute bronchitis, patient is negative for flu/ COVID, chest x-ray is negative for pneumonia. Start the patient on Z-Prabhjot course/prednisone/ bronchodilator and use ibuprofen p.r.n. generalized body ache. Medical Decision Making Lab Data Lab results reviewed: Yes I reviewed the patient's lab results. Labs: Lab Results 01/16/22 01/16/22 Range/Units 03:52 03:52 COVID-19 ([facility]) Negative (Negative) COVID-19 Clin Com See Note Influenza Type A ([facility]) Negative (Negative) Influenza Type B ([facility]) Negative (Negative) Influenza A & B Note See Note Imaging Data Chest x-ray: Attestation: I personally reviewed and interpreted this imaging study as follows: Radiologist's impression: No acute intrathoracic pathology. Discharge Plan Discharge Clinical Impression: Viral infection, Acute bronchitis Patient Disposition: Home, Self-Care Instructions: Acute Bronchitis (ED), Viral Syndrome (ED) Additional Instructions: no marijuana smoking, take 1 ibuprofen 200 mg tablet over ( [id number]-[id number] medication) every 6 hours if needed for body ache. Take the prescribed medicine as instructed, return if worsening of her symptoms. Prescriptions: New prednisone 10 mg tablet 10 mg PO BID Qty: 10 0RF albuterol sulfate [ProAir HFA] 90 mcg/actuation HFA aerosol inhaler 1 inh inhalation QID PRN (Reason: shortness of breath or wheezing) Qty: 8.5 0RF azithromycin [Zithromax Z-Prabhjot] 250 mg tablet See Rx Instructions .ROUTE .COMPLEX Qty: 6 0RF Rx Instructions: For 250 mg dose pack: take 500 mg today (day 1), then 250 mg for 4 days (days 2-5) No Action oxycodone 5 mg tablet 5 mg PO Q8H PRN (Reason: pain) Qty: 10 0RF cyclobenzaprine 10 mg tablet 10 mg PO BEDTIME PRN (Reason: muscle spasm) Qty: 7 0RF lidocaine 5 % adhesive patch,medicated 1 patch topical DAILY PRN (Reason: pain) Qty: 15 0RF Rx Instructions: leave on most painful area for up to 12 hrs hydrocodone-acetaminophen 5-300 mg tablet 1 tab PO Q4-6H PRN (Reason: pain) 5 Days Qty: 14 0RF Rx Instructions: Can partially fill prescription upon request. Referrals: Ariana Montgomery MD [Primary Care Provider] -
[2022-01-16 04:10] LABS: COVID-19 Test Negative (Negative); IDNOW Serial# 16C4AD1C; Influenza A Negative (Negative); Influenza B2 Negative (Negative)
[2022-01-16] MEDS: predniSONE 20 MG TABLET 40 MG PO (05:55)
[2022-01-16] MEDS: Ibuprofen 600 MG TABLET PO (05:56)
== END 2022-01-16 06:04 | disposition home or self-care (01) ==
PROVIDERS: Emergency Provider Emergency Medicine; PCP Internal Medicine
DX: B34.9 Viral infection, unspecified (principal); J20.9 Acute bronchitis, unspecified; R50.9 Fever, unspecified; M79.10 Myalgia, unspecified site; R05.9 Cough, unspecified; Z79.899 Other long term (current) drug therapy; Z20.822 Contact with and (suspected) exposure to COVID-19
CPT/HCPCS: 71045; 87502; 87635; 99283; 99284

== ENCOUNTER 2022-07-17 14:59 | Outpatient (REF) | payer OTHER, SELFPAY ==
[2022-07-17 15:08] LABS: MANUAL DIFF FLAG NO
[2022-07-17 15:29] LABS: Basophils Percent Auto 0.4 % (0-2); Eosinophils Absolute Auto 0.1 X10*3/uL (0.0-0.4); Eosinophils Percent Auto 2.1 % (0-4); Hematocrit 42.7 % (42.0-52.0); Hemoglobin 14.5 g/dl (14.0-18.0); Imm Gran Abs Auto 0.02 X10*3/uL (0.00-0.03); Imm Gran Pct Auto 0.3 % (0.0-0.4); Lymphocytes Absolute Auto 2.7 X10*3/uL (1.2-4.9); Lymphocytes Percent Auto 40.1 % (20-40); Mean Corpuscular Hemoglobin 30.3 pg (27.0-33.0); Mean Corpuscular Volume 89.1 fL (80.0-98.0); Mean Platelet Volume 10.4 fL (9.4-12.4); Monocytes Absolute Auto 0.7 X10*3/uL (0.1-1.2); Monocytes Percent Auto 9.7 % (2-11); Neutrophils Absolute Auto 3.2 x10*3/uL (2.0-8.3); Neutrophils Percent Auto 47.4 % (45-73); Platelet Count 269 X10*3/uL (160-400); Red Blood Count 4.79 X10*6/uL (4.60-5.80); Red Cell Distribution Width 12.7 % (11.0-16.0); White Blood Count 6.7 X10*3/uL (4.8-10.8)
[2022-07-17 15:39] LABS: Estimated Average Glucose 100 mg/dL; Hemoglobin A1c % 5.1 %
[2022-07-17 15:57] LABS: Alanine Aminotransferase 29 U/L (0-40); Albumin Level 4.6 g/dL (3.5-5.0); Alkaline Phosphatase 83 U/L (39-117); Anion Gap 7 (12-20); Aspartate Amino Transferase 24 U/L (5-37); Bilirubin Total 0.7 mg/dL (0.0-1.0); Blood Urea Nitrogen 17 mg/dL (9-16); Calcium 9.4 mg/dL (8.4-10.2); Carbon Dioxide 29 mmol/L (22-29); Chloride 108 mmol/L (96-108); Cholesterol 207 mg/dL; Estimated Glomerular Filt Rate > 60; Glucose Random 91 mg/dL (60-115); HDL Cholesterol 31 mg/dL; LDL Cholesterol Calculated 131 mg/dl; Potassium 4.1 mmol/L (3.3-5.1); Sodium 140 mmol/L (135-145); Total Protein 7.5 g/dL (6.5-8.0); Triglycerides 228 mg/dL
[2022-07-17 16:12] LABS: Prostate Specific Antigen Scr 0.36 ng/mL (<0.05-4.0); Thyroid Stimulating Hormone 0.73 uIU/mL (0.32-4.0)
== END 2022-07-17 15:00 | disposition home or self-care (01) ==
LOC: HO.LAB 14:59
PROVIDERS: PCP Internal Medicine; Visit Provider Internal Medicine
DX: Z12.5 Encounter for screening for malignant neoplasm of prostate (principal); E78.2 Mixed hyperlipidemia; I10 Essential (primary) hypertension; R07.89 Other chest pain; R73.01 Impaired fasting glucose
CPT/HCPCS: 36415; 80053; 80061; 83036; 84153; 84443; 85025

== ENCOUNTER 2022-12-17 17:10 | Emergency (ER) | payer OTHER, SELFPAY ==
[2022-12-17 17:10] VITALS: BP 180/124; PULSE 110; RESP 30
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
--- NOTE | 2022-12-17 17:18 | PC.NURSE ---
1700 arrival to room. alert, in recliner, blood from left inner thigh. able to transfer to bed. skin pale diaphoretic.
[2022-12-17 17:22] VITALS: BP 179/134; PULSE 120; RESP 30; BMI 35.5
[2022-12-17 17:29] VITALS: BP 157/100; PULSE 91; RESP 24; O2SAT 100
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
[2022-12-17 17:35] VITALS: BP 167/119; PULSE 89; RESP 32; O2SAT 100
--- NOTE | 2022-12-17 17:40 | PC.NURSE ---
palpable pedal pulses right and brisk cap refill. pt is calmer. EMS present for transfer. fluids continue to infuse.
== END 2022-12-17 17:48 | disposition short-term general hospital (02) ==
LOC: HO.ED 17:32
PROVIDERS: Emergency Provider Internal Medicine
DX: S71.131A Puncture wound without foreign body, right thigh, initial encounter (principal); W34.00XA Accidental discharge from unspecified firearms or gun, initial encounter; Y93.9 Activity, unspecified; Y92.9 Unspecified place or not applicable; Y99.9 Unspecified external cause status
CPT/HCPCS: 73551; 96374; 96375; 96376; 99285; J1170; J2270; J2405

== ENCOUNTER 2023-02-26 13:15 | Outpatient (REF) | payer OTHER, SELFPAY ==
[2023-02-26 14:51] LABS: Alanine Aminotransferase 22 U/L (0-40); Albumin Level 4.6 g/dL (3.5-5.0); Alkaline Phosphatase 67 U/L (39-117); Anion Gap 11 (12-20); Aspartate Amino Transferase 17 U/L (5-37); Bilirubin Total 0.5 mg/dL (0.0-1.0); Blood Urea Nitrogen 15 mg/dL (9-16); Calcium 9.8 mg/dL (8.4-10.2); Carbon Dioxide 29 mmol/L (22-29); Chloride 107 mmol/L (96-108); Cholesterol 199 mg/dL (<200); Estimated Glomerular Filt Rate > 60; Glucose Random 95 mg/dL (60-115); HDL Cholesterol 36 mg/dL (>40); LDL Cholesterol Calculated 119 mg/dL (<100); Potassium 4.3 mmol/L (3.3-5.1); Sodium 143 mmol/L (135-145); Triglycerides 222 mg/dL (<150)
== END 2023-02-26 13:16 | disposition home or self-care (01) ==
LOC: HO.LAB 13:15
PROVIDERS: PCP Internal Medicine; Visit Provider Internal Medicine
DX: Z00.00 Encounter for general adult medical examination without abnormal findings (principal); E78.2 Mixed hyperlipidemia; I10 Essential (primary) hypertension; K64.5 Perianal venous thrombosis
CPT/HCPCS: 36415; 80053; 80061

== ENCOUNTER 2023-03-04 09:30 | Outpatient (REF) | payer OTHER, SELFPAY | END 2023-03-04 09:31 | disposition home or self-care (01) | LOC: HO.LNP 09:30 | PROVIDERS: PCP Internal Medicine; Referring Provider Internal Medicine; Visit Provider Surgery | DX: K64.5 Perianal venous thrombosis (principal); Z79.899 Other long term (current) drug therapy | CPT/HCPCS: 46320; 88304 ==

== ENCOUNTER 2023-03-04 09:30 | Outpatient (AMB) | payer OTHER, SELFPAY ==
[2023-03-04 09:36] VITALS: BP 154/92; PULSE 73; BMI 35.3
--- NOTE | 2023-03-04 09:36 | A.OFFVIS_ITS ---
Intake Vital Signs 03/04/23 09:36 Height 5 ft 8 in Weight 232 lb BMI 35.3 BP 154/92 H Blood Pressure Location Rt brachial Position Sitting Pulse 73 Intake Visit Reasons: Thrombosed External Hemorrhoid Intake Note: Patient here for thrombosed external hemorrhoid. Has been present for 3-4 wks. Denies constipation, bleeding. Colonoscopy last year. Rnfa Required: No Accompanied by: Self / Same As Patient Allergies codeine Allergy (Unknown, Verified 03/04/23 09:38) Unknown Medication List - Last Reconciled 03/04/23 by Elia Ma MD albuterol sulfate 90 mcg/actuation (ProAir HFA) 1 inh inhalation QID PRN lidocaine 5% 1 patch topical DAILY PRN HPI HPI Comments History of Present Illness Details Patient presents with approximately 1-1/2 week history of a painful swollen hemorrhoid. Presents here for further evaluation. He has never had this before. Patient otherwise has regular bowel habits. He is occasionally doing heavy lifting. Patient had colonoscopy approximately a year ago for screening surveillance which he states was within normal limits. Chart was reviewed patient evaluated [facility] Medical History History of left inguinal hernia Rib fractures Surgical History Hx of surgical procedure (~2018) H/O right inguinal hernia repair (12/13/19) Social History Alcohol intake: never Patient Tobacco Use Status: Never used Tobacco Substance Use Type: Marijuana Physical Exam Vital Signs: Last Vital Signs Pulse 73 03/04/23 09:36 BP 154/92 H 03/04/23 09:36 BMI result Body Mass Index 35.3 GI Other: Abdomen soft, benign rectal exam demonstrates a very large thrombosed external hemorrhoid. Office Procedures Excision Details: Risks, benefits, alternatives of excision of thrombosed external hemorrhoid reviewed with the patient included but not limited to bleeding, infection, recurrence, numbness, pain, scarring, incontinence and the patient was to proceed. All questions were answered. After appropriate positioning, patient underwent 1% lidocaine with Betadine prep. Uneventful excision of the thrombosed external hemorrhoid in the 3 o'clock position and prone was uneventfully performed. Specimen sent to pathology. Wound was irrigated, secured hemostasis with silver nitrate, and sterile dressing applied. Patient tolerated procedure well. 77937-xhuin/arms/legs 2.1-3cm Procedure code (CPT) selection complete Office Meds lidocaine 1 %-epinephrine 1:100,000 injection solution Performing Provider: Elia Ma MD Performing Location: [facility] Administered by: Elia Ma MD on 03/04/23 10:05 Dose Route Admin Location Dispensed Lot Number Expiration Date [facility] Signing Agent 10 mL Infiltration 10 mL Assessment & Plan Assessment & Plan (1) Thrombosed external hemorrhoids: Code(s): K64.5 - Perianal venous thrombosis Plan: Patient has been given local instructions as well as analgesics, suggestions for stool softeners, Sitz baths, ice pack, and will see me as directed or p.r.n.. Orders: Orders AMB Excision Today K64.5 - Perianal venous thrombosis Medications: New hydrocodone-acetaminophen 5-325 mg Partial Fill upon patient request. 1 tab PO Q4-6H PRN 30 tabs 0RF pain Coding Level of Care Code New Pt Level 5 (27498) Diagnoses Thrombosed external hemorrhoids K64.5 CPT Codes Trunk/Arms/Legs - CPT: 10559-ccnpr/arms/legs 2.1-3cm ([id number])
== END 2023-03-04 10:12 | disposition home or self-care (01) ==
PROVIDERS: PCP Internal Medicine; Referring Provider Internal Medicine; Visit Provider Surgery
DX: K64.5 Perianal venous thrombosis (principal)
CPT/HCPCS: 46320; 99204

== ENCOUNTER 2023-03-07 08:40 | Outpatient (AMB) | payer OTHER, SELFPAY ==
[2023-03-07 08:46] VITALS: BP 132/93; PULSE 81; BMI 34.7
--- NOTE | 2023-03-07 08:46 | A.OFFVIS_ITS ---
Intake Vital Signs 03/07/23 08:46 Height 5 ft 8 in Weight 228 lb BMI 34.7 BP 132/93 H Blood Pressure Location Rt brachial Position Sitting Pulse 81 Intake Visit Reasons: s/p excision of thrombosed external hemorrhoid Intake Note: Patient here s/o exc thrombosed external hemorrhoid. C/o pain, uncomfortable when sitting. Still taking rx pain meds. Environmental Compliance Technician Required: No Accompanied by: Self / Same As Patient Allergies codeine Allergy (Unknown, Verified 03/07/23 08:47) Unknown HPI HPI Comments History of Present Illness Details Patient presents for follow-up. Aside from incisional discomfort and some wound drainage a, he is doing okay. He is tolerating his diet. He is having normal bowel habits. He is taking stool softeners. [facility] Medical History History of left inguinal hernia Rib fractures Surgical History History of hemorrhoidectomy (03/04/23) Hx of surgical procedure (~2018) H/O right inguinal hernia repair (12/13/19) Social History Alcohol intake: never Patient Tobacco Use Status: Never used Tobacco Substance Use Type: Marijuana Physical Exam Vital Signs: Last Vital Signs Pulse 81 03/07/23 08:46 BP 132/93 H 03/07/23 08:46 BMI result Body Mass Index 34.7 GI Other: Abdomen soft. Hemorrhoid wound healing uneventfully. No evidence of any infection. Assessment & Plan Assessment & Plan (1) Thrombosed external hemorrhoids: Code(s): K64.5 - Perianal venous thrombosis Plan Patient has been given local instructions, and will follow-up p.r.n.. He is leaving later today for a trip to [place] for approximately 8 weeks. Should they have any issues or complaints while there, he should contact a local walk-in clinic. He would like a doughnut for the road trip. Arrangements were made for this. Coding Level of Care Code Global (90605) Diagnoses Thrombosed external hemorrhoids K64.5
== END 2023-03-07 09:06 | disposition home or self-care (01) ==
PROVIDERS: PCP Internal Medicine; Visit Provider Surgery
DX: K64.5 Perianal venous thrombosis (principal)
CPT/HCPCS: 99024

== ENCOUNTER → 2023-03-07 08:40 | Outpatient (BNVA) | payer OTHER, SELFPAY | PROVIDERS: PCP Internal Medicine; Visit Provider Surgery ==

== ENCOUNTER 2023-07-27 11:06 | Emergency (ER) | payer MEDICAID, SELFPAY ==
[2023-07-27 11:23] VITALS: BP 132/94; PULSE 86; RESP 18; TEMP 36.3; O2SAT 96; BMI 34.0
--- NOTE | 2023-07-27 11:27 | ED.GENADULT ---
HPI - General Adult General Chief complaint: Ear Problems Stated complaint: L ear pain Time Seen by Provider: 07/27/23 11:35 Source: patient Mode of arrival: ambulatory Limitations: no limitations History of Present Illness HPI narrative: 58 yold male presents to the ED for left ear pain for the past 3 days. Patient denies any headache, ear discharge, bleeding from ears, swelling/redness in front/behind ear, or recent trauma. Related Data Previous Rx's Medication Instructions Recorded lidocaine 5 % topical patch 1 patch topical DAILY PRN pain #15 06/12/21 ea albuterol sulfate 90 mcg/actuation 1 inh inhalation QID PRN shortness 01/16/22 aerosol inhaler (ProAir HFA) of breath or wheezing #8.5 grams hydrocodone 5 mg-acetaminophen 325 1 tab PO Q4-6H PRN pain #30 tabs 03/04/23 mg tablet Donut seat cushion #1 ea 03/07/23 naproxen 500 mg tablet 500 mg PO BID PRN pain 7 days #14 07/27/23 tabs [id number]-[id number]-[id number] 3.3 4 drp otic (ear) left QID 7 days 07/27/23 mg-3 mg-10 mg-0.5 mg/mL ear #10 mL drops,susp (Cortisporin-TC) Allergies Allergy/AdvReac Type Severity Reaction Status Date / Time codeine Allergy Unknown Unknown Verified 07/27/23 11:22 Review of Systems Review of Systems: Left ear pain Yes all other systems are reviewed and are negative [facility] Past Medical History Medical History History of left inguinal hernia Rib fractures Surgical History History of hemorrhoidectomy (03/04/23) Hx of surgical procedure (~2018) H/O right inguinal hernia repair (12/13/19) Social History Social History Alcohol intake: never Patient Tobacco Use Status: Never used Tobacco Substance Use Type: Marijuana Advance Directives: No Advance Directives Information Provided: Yes Physical Exam ED Vital Signs: Vital Signs - 24 hr 07/27/23 11:23 Temperature 97.4 F Pulse Rate 86 Respiratory Rate 18 Blood Pressure 132/94 H Pulse Oximetry 96 Oxygen Delivery Method Room Air BMI result Body Mass Index 34.0 Const General: cooperative, healthy appearing, comfortable, no acute distress, well developed, alert, awake and Physically active Orientation/consciousness: oriented to person, oriented to place, oriented to time and patient oriented x3 HENMT Head: Yes normal to inspection, Yes No palpable skull fracture present, Yes normocephalic, Yes atraumatic and No abrasion Ears: hearing grossly normal bilaterally, external ears normal, TM normal on the right, mastoids normal, no periauricular adenopathy and Abnormal EAC present ( left ear canal swollen) otic discharge (yellow) Throat: Yes posterior oropharynx normal, Yes tonsils normal and Yes uvula midline Eyes General: appearance normal, both eyes and all related structures Neck Neck: Yes normal visual inspection, Yes full ROM, Yes no lymphadenopathy, Yes no meningeal signs, Yes trachea midline, Yes supple, No anterior neck swelling and No tender Chest Chest palpation & inspection: normal inspection of the chest and normal palpation of entire chest wall Resp Effort & Inspection: normal respiratory effort and able to speak in complete sentences Auscultation: clear to auscultation bilaterally Cardio Jugular venous distension: no JVD Heart sounds: S1 normal heart sound present and S2 normal heart sound present GI Inspection: Yes normal to inspection Palpation (GI): Soft to palpation, not firm, nontender, no guarding and not rigid General: No CVA tenderness and Yes no CVA tenderness Back/Spine/Pelvis Back: no CVA tenderness, No CVA tenderness and No back tenderness Skin General skin exam: no rashes or lesions noted, elasticity normal and turgor normal Neuro General: oriented to person, oriented to place, oriented to time, patient oriented x3, gait normal, tone normal, moves all extremities, Normal light touch and pain sensation, no meningeal signs, no focal motor deficits, CN's II-XI intact bilaterally and normal sensation to monofilament Extrem General: Yes normal to inspection and Yes full ROM Psych Appearance: grossly normal, well kempt and not disheveled Course Course Course Narrative: RME; 58 yold male presents to the ED for LEft ear pain the past two days. ear canal swollen Medical Decision Making Medical Decision Making [facility] Narrative: 58-year-old male with pmh of BPH, kidney steons presents to ED for left ear for past couple of days. Patient denies any ear drainage, or any trauma with Q-tip headache, or any redness swelling in front behind ear. Exam indicate otitis externa of left ear. Discharge antibiotics. not suspecting mastoiditis, cellulitis, temporal arteritis, osteomyelitis. Differential Diagnosis Differential Diagnoses: The differential diagnosis associated with the presentation includes (Otitis externa or otitis media.) External Record Review External record reviewed: Other (Prior visits) Prescription Management I considered prescription management with: Pain Medication and Antibiotic Discharge Plan Discharge Clinical Impression: Otitis externa Patient Disposition: Home, Self-Care Instructions: Otitis Externa (ED) Additional Instructions: Recommend follow-up with your primary care provider. You will be given antibiotic ear drops for the left ear. Return to the ED immediately for worsening ear pain, bloody discharge, increased discharge, fever, chills, headache, redness or swelling behind the knee for any ear, or any other concerning symptoms. Prescriptions: New Cortisporin-TC 3.3-3-10-0.5 mg/mL drops,suspension 4 drp otic (ear) left QID 7 Days Qty: 10 0RF naproxen 500 mg tablet 500 mg PO BID PRN (Reason: pain) 7 Days Qty: 14 0RF No Action albuterol sulfate [ProAir HFA] 90 mcg/actuation HFA aerosol inhaler 1 inh inhalation QID PRN (Reason: shortness of breath or wheezing) Qty: 8.5 0RF lidocaine 5 % adhesive patch,medicated 1 patch topical DAILY PRN (Reason: pain) Qty: 15 0RF Rx Instructions: leave on most painful area for up to 12 hrs hydrocodone-acetaminophen 5-325 mg tablet 1 tab PO Q4-6H PRN (Reason: pain) Qty: 30 0RF Rx Instructions: Partial Fill upon patient request. (DME) Donut seat cushion See Rx Instructions .Route .MEDSUPPLY Qty: 1 0RF Rx Instructions: As directed Stand Alone Forms: Work/School Release Interventions: ED Discharge Assessment Last Done: 07/27/23 11:36 Discharge Date/Time: 07/27/23 11:37 Print Language: Tamazight
--- OUTSIDE RECORDS SUMMARY | 2023-07-27 11:31 | XMS_ITS | Continuity of Care Document ---
Author Name Unknown Organization [facility] Address [address] [place] [address] ve [address] [place] [address]- Care Team Providers Care Employee Communications Manager Name Role Phone Ariana Montgomery MD Primary Care Physician [phone] Encounter [facility] Date(s): 12/24/22 - 02/01/23 [facility] [address] [place], [place] [address] Attending Physician: Elaina Calderon MD Allergies, Adverse Reactions, Alerts No Known Allergies Immunizations Given and Recorded Vaccine Date Status Refusal Reason SARS-CoV-2 (COVID-19) mRNA-1273 vaccine 03/08/21 R ecorded SARS-CoV-2 (COVID-19) mRNA BNT-162b2 vac 01/10/21 Recorded SARS-CoV-2 (COVID-19) mRNA BNT-162b2 vac 12/20/20 Recorded influenza virus vaccine, inactivated 1 03/07/09 Gi moy 1Admin Note: ADM BY RN Medications docusate sodium 100 mg oral capsule 1 capsule = 100 mg, By Mouth, 2 times a day, PRN as needed for constipation, # 20 capsule, 0 Refills, Maintenance, 05/29/21 22:51:00 EST, Capsule, Partial fill upon patient request if the prescription is for a schedule II opioid drug. Start Date: 05/29/21 Status: Ordered gabapentin 300 mg oral capsule 300 mg, 1, capsule, By Mouth, 3 times a day, # 90 capsule, Refills 5, Maintenance, 05/29/21 22:51:00 EST, Partial fill upon patient request if the prescription is for a schedule II opioid drug. Start Date: 05/29/21 Status: Ordered ibuprofen 800 mg oral tablet 800 mg, 1, tablet, By Mouth, 3 times a day, Refills 0, Maintenance, 06/01/21 9:37:00 EST, Partial fill upon patient request if the prescription is for a schedule II opioid drug. Start Date: 06/01/21 Status: Ordered MiraLax oral powder for reconstitution = 17 Gm, By Mouth, Daily, dissolve in water before taking, # 255 Gm, 0 Refills, Maintenance, 06/01/21 11:28:00 EST, REC Powder, [facility], Partial fill upon patient request if the prescription is for a schedule II opioid drug., 17 Gm By... Start Date: 06/01/21 Status: Ordered Norvasc 5 mg oral tablet 5 mg, 1, tablet, By Mouth, Daily, # 30 tablet, Refills 0, Maintenance, 05/29/21 22:51:00 EST, Partial fill upon patient request if the prescription is for a schedule II opioid drug. Start Date: 05/29/21 Status: Ordered Senna 8.6 mg oral tablet 8.6 mg, 1, tablet, By Mouth, Daily at bedtime, Refills 0, Maintenance, 05/29/21 22:53:00 EST, Partial fill upon patient request if the prescription is for a schedule II opioid drug. Start Date: 05/29/21 Status: Ordered Tylenol 325 mg oral capsule 1 capsule = 325 mg, By Mouth, Every 4 hours, PRN as needed for pain, # 90 capsule, 0 Refills, Maintenance, 05/29/21 22:51:00 EST, Capsule, Partial fill upon patient request if the prescription is fora schedule II opioid drug. Start Date: 05/29/21 Status: Ordered Patient Care team information Care Team Personnel Name: Ariana Montgomery MD Position: [facility] Outreach Member Role: PCP Address: Address: [address] [place] [address] [address] [place] [address]- Care Team Related Persons Name: LINA MUSE Address: [address] [place] [address] Name: CHASE JOE Address: [place] [address] Name: SHIRAZ BEARD Address: home [address] [place] [id number]
--- OUTSIDE RECORDS SUMMARY | 2023-07-27 11:31 | XMS_ITS | Continuity of Care Document ---
Author Name Unknown Organization [facility] ter Address [address] [place] [address]- Care Team Providers Care Plate Gauger Name Role Phone Ariana Montgomery MD Primary Care Physician [phone] Encounter [facility] Date(s): 05/29/21 - 06/01/[address] [address]- Encounter Diagnosis Rib fractures(Final) - 05/29/21 Discharge Disposition: A-D/C Home Attending Physician: Cornelia Powell MD Admitting Physician: Khari Ellis MD Referring Physician: Not on Staff, Referring MD Allergies, Adverse Reactions, Alerts Substance Reaction Severity Status NKA Active Immunizations Given and Recorded Vaccine Date Status [...] drug. Start Date: 05/29/21 Status: Ordered gabapentin 100 mg oral capsule 300 mg, Capsule, By Mouth, 06/01/21 9:00:00 EST, Stop date 06/01/21 9:00:00 EST Start Date: 06/01/21 Stop Date: 06/01/21 Status: Completed gabapentin 100 mg oral capsule 300 mg, Capsule, By Mouth, 06/01/21 15:00:00 EST, Stop date 06/01/21 15:00:00 EST Start Date: 06/01/21 Stop Date: 06/01/21 Status: Completed gabapentin 300 mg oral capsule 300 mg, 1, capsule, By Mouth, 3 times a day, # 90 capsule, Refills 5, Maintenance, 05/29/21 22:51:00 EST, Partial fill upon patient request if the prescription is for a schedule II opioid drug. Start Date: 05/29/21 Status: Ordered ibuprofen 800 mg oral tablet 800 mg, Tablet, By Mouth, 06/01/21 9:00:00 EST, Stop date 06/01/21 9:00:00 EST Start Date: 06/01/21 Stop Date: 06/01/21 Status: Completed ibuprofen 800 mg oral tablet 800 mg, [...] Refills, Maintenance, 06/01/21 11:28:00 EST, REC Powder, [facility], Partial fill upon patient request if [...] opioid drug. Start Date: 05/29/21 Status: Ordered Norvasc 5 mg oral tablet 5 mg, Tablet, By Mouth, Hold for: systolic <100, 06/01/21 9:00:00 EST Start Date: 06/01/21 Stop Date: 06/01/21 Status: Completed oxyCODONE 5 mg oral capsule 1 capsule = 5 mg, By Mouth, Every 6 hours, PRN as needed for pain, for 3 days, # 12 capsule, 0 Refills, Acute 06/04/21 11:29:00 EST, 06/01/21 11:29:00 EST, Capsule, [facility], Partial fill upon patient request if the prescription is for... Start Date: 06/01/21 Stop Date: 06/04/21 Status: Ordered Senna 8.6 mg oral tablet [...] opioid drug. Start Date: 05/29/21 Status: Ordered Results Radiology Reports * Exam Date Time Procedure Performing Provider Status 05/29/21 3:56 PM Wrist Comp Min 3 Views Right Jody Cochran (Verified) Notes: (Wrist Comp Min 3 Views Right) Reason For Exam: with Pain;Trauma RESULT: Wrist Comp Min 3 Views Right Wrist Comp Min 3 Views Right History of Present Illness: Fall from 7 foot ladder one week ago, now with back pain, chest pain, wrist pain, shoulder pain, tachypnea, room is hot , something is stabbing me back there. Reason: Trauma; with Pain. Clinical Question(s): Fracture. COMPARISON: None. FINDINGS: No fracture or dislocation. No arthritic change. Normal carpal configuration. Intact radial and ulnar styloid processes. Normal soft tissues. There is an IV access line overlying the distal radius. IMPRESSION: No acute osseous abnormality. I have personally reviewed the images and I agree with this report. WSN: [id number] Ordering Physician: Albertina Alcazar Dictated By: Angel Ford MD Dictated Date/Time: 05/29/21 4:06 pm Reviewed By: Morgan Rodriguez MD Signed By: Morgan Rodriguez MD Signed Date/Time: 05/29/21 4:11 pm Transcribed By: BRYANNA Transcribed Date/Time: 05/29/21 4:02 pm * Exam Date Time Procedure Performing Provider Status 05/29/21 2:36 PM Chest Portable Reeter , Rodney; Auth (V erified) Notes: (Chest Portable) Reason For Exam: Shortness of Breath RESULT: Chest Portable Chest Portable CLINICAL INDICATION: Back pain after fall from ladder. COMPARISON: Chest x-ray, 09/17/2007. FINDINGS: The cardiac silhouette is within normal limits. Hilar and mediastinal contours are normal. There are low lung volumes with mild bibasilar atelectasis and possible trace left effusion. Thereis no pneumothorax or evidence of CHF. Mildly displaced right 7th lateral rib fracture is seen. Nondisplaced fracture is also seen along the 9th lateral right rib, as well as displaced right lateral 10th rib fracture. IMPRESSION: Acute fractures are seen involving the right lateral 7th, 9th, and 10th ribs. There is no definite pneumothorax or pleural fluid. Findings communicated to Dr. Albertina Alcazar 10 2:55 PM on 05/29/2021. WSN: [id number] Ordering Physician: Albertina Alcazar Dictated By: Melani Goldstein MD Dictated Date/Time: 05/29/21 2:56 pm Reviewed By: Melani Goldstein MD Signed By: Melani Goldstein MD Signed Date/Time: 05/29/21 2:56 pm Transcribed By: BRYANNA Transcribed Date/Time: 05/29/21 2:51 pm Vital Signs Most recent to oldest [Reference Range]: 1 2 3 Height 180 cm (05/31/21 8:41 PM) 180 cm (05/30/21 8:41 AM) 180 cm (05/30/21 2:05 AM) Weight 95.4 kg (05/30/21 9:26 AM) Oxygen Saturation [94-100 %] 99 % (06/01/21 7:00 AM) 99 % (05/31/21 8:41 PM) 97 % (05/31/21 7:00 AM) Pulse Rate [55-90 bpm] 99 bpm *H* (06/01/21 7:00 AM) 84 bpm (05/31/21 8:41 PM) 87 bpm (05/31/21 7:00 AM) Blood Pressure [90-138/55-84 mm Hg] 147/96mm Hg *H* (06/01/21 7:48 AM) 147/96mm Hg *H* (06/01/21 7:00 AM) 135/89mm Hg (05/31/21 8:00 PM) Respiratory Rate [16-30 br/min] 18 br/min (06/01/21 3:00 PM) 18 br/min (06/01/21 8:48 AM) 18 br/min (06/01/21 8:48 AM) Temperature [96.8-100.4 DegF] 99.1 DegF (06/01/21 7:00 AM) 98.0 DegF (05/31/21 8:41 PM) 98.4 DegF (05/31/21 7:00 AM) Mode of Delivery (Oxygen) Room air (06/01/21 7:00 AM) Room air (05/31/21 8:41 PM) Room air (05/31/21 7:00 AM) Blood pressure sites Arm, left (06/01/21 7:00 AM) Arm, left (05/31/21 8:41 PM) Arm, left (05/30/21 7:00 PM) Temperature Route Oral (06/01/21 7:00 AM) Oral (05/31/21 8:41 PM) Oral (05/31/21 7:00 AM) Weight Obtained Via Bed scale (05/30/21 9:26 AM)
--- OUTSIDE RECORDS SUMMARY | 2023-07-27 11:31 | XMS_ITS | Continuity of Care Document ---
Author Name Unknown Organization [facility] Address [address] [place] [address] [address] [place] [address]- Care Team Providers Care Quality Control Supervisor Name Role Phone Ulises TRAYLOR, Ariana Ortiz Primary Care Physician Encounter [facility] Date(s): 12/24/22 - 12/31/[address] [place] [address]- Attending Physician: Chivo TRAYLOR, Randall Allergies, Adverse Reactions, Alerts No Known Allergies Immunizations Given and Recorded Vaccine Date Status Refusal Reason SARS-CoV-2 (COVID-19) mRNA-1273 vaccine 03/08/21 R ecorded SARS-CoV-2 (COVID-19) mRNA BNT-162b2 vac 01/10/21 Recorded SARS-CoV-2 (COVID-19) mRNA BNT-162b2 vac 12/20/20 Recorded influenza virus vaccine, inactivated 1 03/07/09 Gi moy 1Admin Note: ADM BY RN Medications acetaminophen 325 mg oral tablet 650 mg, 2, tablet, By Mouth, Every 4 hours, PRN, for 10 days, # 80 tablet, Refills 1, Tot. Refills 1, Acute 01/13/23 10:08:00 EDT, as needed for pain, 12/24/22 10:08:00 EDT, Route to Pharmacy Electronically, [facility]/pharmacy #[id number], Partial fill upon patie... Start Date: 12/24/22 Stop Date: 01/13/23 Status: Ordered bacitracin topical 500 u/gm ointment 1 application, Topically, Daily, apply to affected area after shower. Cover with bandaid., # 30 Gm,0 Refills, Acute 01/07/23 10:15:00 EDT, 12/24/22 10:14:00 EDT, Ointment, [id number], Partial fill upon patient request if the prescription is f... Start Date: 12/24/22 Stop Date: 01/07/23 Status: Ordered docusate sodium 100 mg oral capsule 1 [...] Refills, Maintenance, 06/01/21 11:28:00 EST, REC Powder, [facility], Partial fill upon patient request if [...] opioid drug. Start Date: 05/29/21 Status: Ordered traMADol 50 mg oral tablet 1 tablet = 50 mg, By Mouth, Every 12 hours, PRN for pain, for 10 days, # 20 tablet, 0 Refills, Acute 01/03/23 10:05:00 EDT, 12/24/22 10:05:00 EDT, Tablet, [facility]/pharmacy #[id number], Partial fill upon patient request if the prescription is for a schedule II o... Start Date: 12/24/22 Stop Date: 01/03/23 Status: Ordered Tylenol 325 mg oral capsule 1 capsule = 325 mg, By Mouth, Every 4 hours, PRN as needed for pain, # 90 capsule, 0 Refills, Maintenance, 05/29/21 22:51:00 EST, Capsule, Partial fill upon patient request if the prescription is fora schedule II opioid drug. Start Date: 05/29/21 Status: Ordered Vital Signs Most recent to oldest [Reference Range]: 1 Height 180 cm (12/24/22 9:37 AM) Pulse Rate [55-90 bpm] 90 bpm (12/24/22 9:37 AM) Blood Pressure [90-138/55-84 mm Hg] 139/ 103mm Hg *H* (12/24/22 9:37 AM) Temperature [96.8-100.4 DegF] 97.1 DegF (12/24/22 9:37 AM) Blood pressure sites Arm, left (12/24/22 9:37 AM) Temperature Route Temporal (12/24/22 9:37 AM) Patient Care team information Care Team Personnel Name: Ariana Montgomery MD Position: [facility] Outreach Member Role: PCP Address: Address: [address] [place] [address]- Care Team Related Persons Name: LINA MUSE Address: home [address] [place] [address] Name: CHASE JOE Address: [place] [address] Name: SHIRAZ BEARD Address: home [address] [place] [address]
--- OUTSIDE RECORDS SUMMARY | 2023-07-27 11:31 | XMS_ITS | Continuity of Care Document ---
Author Name Unknown Organization [facility] Address [address] [place] [address] [address] [place] [address]- Care Team Providers Care Recreation Program Specialist Name Role Phone Ariana Montgomery MD Primary Care Physician [phone] Encounter [facility] Date(s): 01/02/23 - 02/01/[address] [place], [place] [address] Attending Physician: Admtr, Tamie Admitting Physician: AdmtrTamie Referring Physician: Admtr, Ar8 Allergies, Adverse Reactions, Alerts No Known Allergies [...] Refills, Maintenance, 06/01/21 11:28:00 EST, REC Powder, [facility], Partial fill upon patient [...] Team Personnel Name: Ariana Montgomery MD Position: S Outreach Member Role: PCP Address: Address: [address] [place] [address]- Care Team Related Persons Name: LINA MUSE Address: home [address] [place] [id number] Name: CHASE JOE Address: [place] [address] Name: SHIRAZ BEARD Address: home [address] [place] [id number]
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
== END 2023-07-27 11:37 | disposition home or self-care (01) ==
PROVIDERS: Emergency Provider Emergency Medicine Emergency Medical Services; PCP Internal Medicine
DX: H60.92 Unspecified otitis externa, left ear (principal); H92.02 Otalgia, left ear
CPT/HCPCS: 99282; 99283

== ENCOUNTER 2024-08-20 02:40 | Emergency (ER) | payer OTHER, SELFPAY ==
--- NOTE | ~2024-08-20 | XR_ITS ---
CLINICAL HISTORY: cough, pain AP and lateral view chest x-ray Comparison: CR/SR - XR CHEST 1V - 01/16/22 04:21 EDT Findings: No focal consolidation. No pleural effusion or pneumothorax. Normal size cardiac silhouette. No acute fracture. IMPRESSION: 1. No acute findings. This document has been electronically signed by: Arlette Combs MD on 08/20/2024 06:10:21
[2024-08-20 02:43] VITALS: BP 110/65; PULSE 81; RESP 18; TEMP 36.1; O2SAT 99; BMI 32.5
[2024-08-20 03:05] LABS: MANUAL DIFF FLAG NO
[2024-08-20 03:06] LABS: Basophils Percent Auto 0.3 % (0-2); Eosinophils Absolute Auto 0.1 X10*3/uL (0.0-0.4); Eosinophils Percent Auto 0.9 % (0-4); Hematocrit 44.6 % (42.0-52.0); Hemoglobin 15.8 g/dl (14.0-18.0); Imm Gran Abs Auto 0.02 X10*3/uL (0.00-0.03); Imm Gran Pct Auto 0.2 % (0.0-0.4); Lymphocytes Absolute Auto 3.6 X10*3/uL (1.2-4.9); Lymphocytes Percent Auto 33.8 % (20-40); Mean Corpuscular HGB Conc 35.4 g/dl (31.0-36.0); Mean Corpuscular Hemoglobin 29.9 pg (27.0-33.0); Mean Corpuscular Volume 84.5 fL (80.0-98.0); Mean Platelet Volume 10.1 fL (9.4-12.4); Monocytes Absolute Auto 0.5 X10*3/uL (0.1-1.2); Monocytes Percent Auto 5.1 % (2-11); Neutrophils Absolute Auto 6.3 x10*3/uL (2.0-8.3); Neutrophils Percent Auto 59.7 % (45-73); Platelet Count 295 X10*3/uL (160-400); Red Blood Count 5.28 X10*6/uL (4.60-5.80); Red Cell Distribution Width 12.8 % (11.0-16.0); White Blood Count 10.5 X10*3/uL (4.8-10.8)
[2024-08-20 03:14] LABS: Appearance Urine Clear; Color Urine Yellow; Glucose Urine UA Negative (Negative); Leukocyte Esterase Urine Negative (Negative); Nitrite Urine Negative (Negative); PH 6.5 (5.0-9.0); Urine Blood Negative (Negative); Urine Ketones Negative (Negative); Urine Protein Negative (Neg-Trace)
[2024-08-20 03:28] LABS: Alanine Aminotransferase 56 U/L (0-40); Albumin Level 4.7 g/dL (3.5-5.0); Alkaline Phosphatase 96 U/L (39-117); Anion Gap 15 (12-20); Aspartate Amino Transferase 34 U/L (5-37); Bilirubin Direct 0.1 mg/dL (0.0-0.5); Bilirubin Total 0.4 mg/dL (0.0-1.0); Blood Urea Nitrogen 16 mg/dL (9-16); Calcium 10.2 mg/dL (8.4-10.2); Carbon Dioxide 20 mmol/L (22-29); Chloride 111 mmol/L (96-108); Creatinine Clr Calc Pharmacy 89.7; Estimated Glomerular Filt Rate > 60; Glucose Random 103 mg/dL (60-115); Lipase 19 U/L (8-78); Potassium 4.1 mmol/L (3.3-5.1); Sodium 142 mmol/L (135-145)
[2024-08-20 06:35] VITALS: BP 158/86; PULSE 80; RESP 16; TEMP 36.9; O2SAT 98
--- NOTE | 2024-08-20 06:41 | ED_ITS ---
HPI - General Adult General Chief complaint: Abdominal Pain Stated complaint: lower back pain Time Seen by Provider: 08/20/24 06:39 Source: patient Mode of arrival: ambulatory Limitations: no limitations History of Present Illness ED Provider: Nely Nicole PA-C HPI narrative: Patient is a 59 year old assigned male at with a history of kidney stones and BPH presenting to the emergency department today with right sided rib pain. Patient states that he was recently in [place] when he developed a cough with phlegm. Patient states that after multiple days of coughing - he developed right sided rib pain that is worse with palpation, deep breathing, and cough. Patient denies any dizziness, lightheadedness, abdominal pain, nausea, vomiting, fever, chills, blurry vision, double vision, loss of vision, chest pain, difficulty breathing, shortness of breath, back pain, night sweats, pain with urination, increased urinary frequency, increased urinary urgency, blood in her urine or stool, syncope or a near syncopal episode, recent trauma or falls, bowel incontinence, bladder incontinence, or any other complaints at this time. Onset (ago): day(s) Location: right (ribs) Radiation: non-radiation Quality: stabbing Pain Consistency: intermittent (with deep breathing, coughing, and palpation) Relieving factors: none Exacerbating factors: other (coughing, palpation, deep breathing) Associated symptoms: cough Treatments prior to arrival: none Related Data Previous Rx's ?Medication ?Instructions ?Recorded lidocaine 5 % topical patch 1 patch topical DAILY PRN pain #15 06/12/21 ea albuterol sulfate 90 mcg/actuation 1 inh inhalation QID PRN shortness 01/16/22 aerosol inhaler (ProAir HFA) of breath or wheezing #8.5 grams hydrocodone 5 mg-acetaminophen 325 1 tab PO Q4-6H PRN pain #30 tabs 03/04/23 mg tablet Donut seat cushion #1 ea 03/07/23 naproxen 500 mg tablet 500 mg PO BID PRN pain 7 days #14 07/27/23 tabs xorafuce-xqlfnk-AS-thonzonm 3.3 4 drp otic (ear) left QID 7 days 07/27/23 mg-3 mg-10 mg-0.5 mg/mL ear #10 mL drops,susp (Cortisporin-TC) jfcvxepz-zolidwfkp-cdovpujmu 3.5 4 drp otic (ear) left QID 7 days 07/28/23 mg-10,000 unit/mL-1 % ear #10 mL drops,susp azithromycin 250 mg tablet See Rx Instructions PO .COMPLEX #6 08/20/24 tabs benzonatate 100 mg capsule 100 mg PO BID PRN cough 7 days #14 08/20/24 caps naproxen 500 mg tablet 500 mg PO BID 7 days #14 tabs 08/20/24 Allergies Allergy/AdvReac Type Severity Reaction Status Date / Time codeine Allergy Unknown Unknown Verified 08/20/24 02:46 Review of Systems 2 Constitutional: Constitutional: Reports no additional constitutional complaints, Denies chills, Denies fever(s) and Denies night sweats Eyes: Eyes: Reports no additional eye complaints, Denies blurry vision, Denies change in vision, Denies diplopia, Denies eye discharge, Denies loss of vision and Denies eye pain ENT: Denies dizziness Cardiovascular: Cardiovascular: Reports no additional cardiovascular complaints, Denies chest pain, Denies lightheadedness, Denies Loss of Consciousness and Denies dyspnea Comments: right rib pain Respiratory: Respiratory: Reports no additional respiratory complaints, Reports cough, Denies dyspnea and Denies wheezing Gastrointestinal: Gastrointestinal: Reports no additional gastrointestinal complaints, Denies abdominal pain, Denies melena, Denies hematochezia, Denies change in bowel habits and Denies change in stool character Genitourinary: Genitourinary: Reports no additional male genitourinary complaints, Denies hematuria, Denies oliguria, Denies difficulty urinating, Denies dysuria, Denies urinary frequency, Denies urinary hesitancy, Denies urinary incontinence and Denies urinary urgency Musculoskeletal: Musculoskeletal: Reports no additional musculoskeletal complaints and Reports other (Pain over bottom right ribs) Integumentary/Breasts: Skin/Breast: Reports system reviewed and no additional complaints, except as docu Neurologic: Denies dizziness and Denies loss of vision Psychiatric: Psychiatric: Reports no additional psychiatric complaints Endocrine: Endocrine: Reports no additional endocrine complaints Hematologic/Lymphatic: Hematologic/Lymphatic: Reports no additional hematologic/lymphatic complaints Allergic/Immunologic: Allergic/Immunologic: Reports no additional allergic/immunologic complaints and Denies wheezing PMFSH Past Medical History Attestation statement: The following information was validated with the patient. Source: old records reviewed and nursing notes reviewed Medical History History of left inguinal hernia Rib fractures Surgical History History of hemorrhoidectomy (03/04/23) Hx of surgical procedure (~2018) H/O right inguinal hernia repair (12/13/19) Social History Social History Alcohol intake: never Patient Tobacco Use Status: Never used Tobacco Smoked in Last 30 Days: No Use of substances other than those prescribed or required for medical reasons: No Substance Use Type: Marijuana Advance Directives: No Physical Exam ED Vital Signs: Vital Signs - 24 hr 08/20/24 02:43 08/20/24 06:35 08/20/24 07:19 Temperature 97.0 F 98.5 F 98.5 F Pulse Rate 81 80 80 Respiratory Rate 18 16 16 Blood Pressure 110/65 158/86 H 158/86 H Pulse Oximetry 99 98 98 Oxygen Delivery Method Room Air Room Air Room Air BMI result Body Mass Index 32.5 Const General: cooperative, no acute distress, alert and awake Nutritional Appearance: well nourished Orientation/consciousness: patient oriented x3 Limitations: no limitations HENMT Head: Yes normal to inspection and Yes atraumatic Ears: hearing grossly normal bilaterally and external ears normal General nose exam: Normal external nose present, no nasal discharge noted and no epistaxis Face and sinus: Yes normal facial exam, No abrasion and No laceration Mouth: Normal oral and palatal mucosa present, no drooling and no muffled voice Eyes General: appearance normal, both eyes and all related structures Periorbital: periorbital findings normal Eyelids: Yes eyelids normal Conjunctivae: conjunctivae normal Pupils: Equal, round and reactive pupils present EOM: EOMs intact bilaterally Neck Neck: Yes normal visual inspection, Yes full ROM and Yes no lymphadenopathy Chest Chest palpation & inspection: localized rib tenderness with anteroposterior compression Resp Effort & Inspection: normal respiratory effort, able to speak in complete sentences and Actively coughing Cardio Rate: regular rate Rhythm: regular rhythm Heart sounds: S1 normal heart sound present, S2 normal heart sound present, no gallops and no murmurs GI Inspection: Yes normal to inspection Palpation (GI): Soft to palpation Neuro General: patient oriented x3, moves all extremities and CN's II-XI intact bilaterally Cranial nerves: Yes Equal, round and reactive pupils present Cognition (Neuro): normal cognition Extrem General: Yes normal to inspection, Yes full ROM and Yes capillary refill normal Psych Appearance: grossly normal Mental Status: mental status grossly normal Affect: normal affect Attitude: cooperative Thought process: Normal thought process present Thought content: Normal thought content present Insight: Good insight present (Psych) Medications Administered Discontinued Medications Generic Name Dose Route Start Last Admin Trade Name Estrellita PRN Reason Stop Dose Admin Cyclobenzaprine HCl 5 mg 08/20/24 06:59 08/20/24 07:10 Cyclobenzaprine Hcl 5 Mg Tablet PO 08/20/24 07:00 5 mg ONCE ONE Administration Ketorolac Tromethamine 15 mg 08/20/24 06:59 08/20/24 07:14 Ketorolac Tromethamine 15 Mg/Ml Vial IM 08/20/24 07:00 15 mg ONCE ONE Administration Medical Decision Making Medical Decision Making MDM Narrative: Patient is a 59 year old assigned male at with a history of kidney stones and BPH presenting to the emergency department today with right sided rib pain. Patient's physical exam was as noted in the physical exam portion of this note. Patient's blood work was unremarkable. Patient's urine showed no acute process. Patient's EKG was unremarkable. Patient's chest x-ray showed no acute process. I explained my physical exam findings as well as all test results to the patient. I answered all questions asked by the patient. Given the patient's length of symptoms and his current presentation - his diagnosis is most consistent with costochondritis vs. pleurisy with a URI. I stressed the importance of the patient taking his medication as directed (either prescribed or as the over the counter packaging recommends). I stressed the importance of the patient following up with his primary care provider. I stressed the importance of the patient returning to the emergency department immediately if his symptoms were to worsen or if he were to develop any dizziness, shortness of breath, difficulty breathing, chest pain, blurry vision, loss of vision, nausea, vomiting, abdominal pain, fever, chills, back pain, or any other complaints. Patient verbalized agreement and understanding with this treatment plan and discharge. Differential Diagnosis Differential Diagnoses: The differential diagnosis associated with the presentation includes Costochondritis Pleurisy PNA URI Cough Admission/Observation Consideration of admission/observation: Escalation of care including admission/observation considered Patient would have been admitted to the hospital had his work up had any findings where hospital admission was appropriate and his clinical presentation warranted hospital admission. Lab Data [facility] Lab Attestation statement: I reviewed the patient's lab results. My interpretation of these results are in the [facility] Rationale portion of this note. 08/20/24 02:58 08/20/24 02:58 Labs: Lab Results 08/20/24 Range/Units 02:58 WBC 10.5 (4.8-10.8) X10*3/uL RBC 5.28 (4.60-5.80) X10*6/uL Hgb 15.8 (14.0-18.0) g/dl Hct 44.6 (42.0-52.0) % MCV 84.5 (80.0-98.0) fL MCH 29.9 (27.0-33.0) pg MCHC 35.4 (31.0-36.0) g/dl RDW 12.8 (11.0-16.0) % Plt Count 295 (160-400) X10*3/uL MPV 10.1 (9.4-12.4) fL Immature Gran % (Auto) 0.2 (0.0-0.4) % Neut % (Auto) 59.7 (45-73) % Lymph % (Auto) 33.8 (20-40) % Dickson % (Auto) 5.1 (2-11) % Eos % (Auto) 0.9 (0-4) % Baso % (Auto) 0.3 (0-2) % Lymph # (Auto) 3.6 (1.2-4.9) X10*3/uL Dickson # (Auto) 0.5 (0.1-1.2) X10*3/uL Eos # (Auto) 0.1 (0.0-0.4) X10*3/uL Baso # (Auto) 0.0 (0.0-0.2) X10*3/uL Abs Immat Gran (auto) 0.02 (0.00-0.03) X10*3/uL Absolute Neuts (auto) 6.3 (2.0-8.3) x10*3/uL Absolute Nucleated RBC 0.000 (0.0-0.012) X10*3/uL Nucleated RBC % (auto) 0.0 (0.0-0.2) /100WBC Sodium 142 (135-145) mmol/L Potassium 4.1 (3.3-5.1) mmol/L Chloride 111 H (96-108) mmol/L Carbon Dioxide 20 L (22-29) mmol/L Anion Gap 15 (12-20) BUN 16 (9-16) mg/dL Creatinine 1.11 (0.5-1.4) mg/dL Estim Creat Clear Calc 89.7 Estimated GFR > 60 Random Glucose 103 (60-115) mg/dL Calcium 10.2 (8.4-10.2) mg/dL Total Bilirubin 0.4 (0.0-1.0) mg/dL Direct Bilirubin 0.1 (0.0-0.5) mg/dL AST 34 (5-37) U/L ALT 56 H (0-40) U/L Alkaline Phosphatase 96 (39-117) U/L Total Protein 9.0 H (6.5-8.0) g/dL Albumin 4.7 (3.5-5.0) g/dL Lipase 19 (8-78) U/L Urine Color Yellow Urine Appearance Clear Urine pH 6.5 (5.0-9.0) Ur Specific [place] 1.020 (1.005-1.025) Urine Protein Negative (Neg-Trace) mg/dL Urine Glucose (UA) Negative (Negative) mg/dL Urine Ketones Negative (Negative) mg/dL Urine Blood Negative (Negative) Urine Nitrite Negative (Negative) Ur Leukocyte Esterase Negative (Negative) Independent Interpretation I performed an independent interpretation of an: EKG and Plain X-Ray Interpretation: My interpretation is in agreement with the radiologist's impression of this imaging study. L CLINICAL HISTORY: cough, pain AP and lateral view chest x-ray Comparison: CR/SR - XR CHEST 1V - 01/16/22 04:21 EDT Findings: No focal consolidation. No pleural effusion or pneumothorax. Normal size cardiac silhouette. No acute fracture. IMPRESSION: 1. No acute findings. This document has been electronically signed by: Arlette Combs MD on 08/20/2024 06:10:21 Dictated By: Arlette Combs MD Signed By: Electronically signed by Arlette Combs MD 08/20/24 0611 I independently interpreted this EKG and am in agreement with the below findings: Vent. Rate: 084 BPM Atrial Rate: 084 BPM P-R Int: 130 ms QRS Dur: 090 ms QT Int: 360 ms P-R-T Axes: 037 -19 000 degrees QTc Int: 425 ms Normal sinus rhythm Normal ECG When compared with ECG of 02-DEC-2019 18:24, No significant change was found Referred By: Marisol Bernstein Electronically Signed By:Huseyin Montes De Oca Dictated By: Huseyin Montes De Oca MD Signed By: Electronically signed by Huseyin Montes De Oca MD 06/12/21 1528 Radiology Impression Discussion of test interpretation with radiology: I have reviewed the radiologist's reading. Discharge Plan Discharge Clinical Impression: Acute costochondritis, Cough, Upper respiratory infection Patient Disposition: Home, Self-Care Instructions: Costochondritis (ED), Upper Respiratory Infection (DC), Acute Cough (ED) Additional Instructions: Your work up today was reassuring that there is no emergent cause of your symptoms. Take your medication as prescribed. Beware that if you have small children - the benzonatate (cough suppressant) can be mistaken as candy and an overdose in children can be deadly. Follow up with your primary care provider. Return to the emergency department immediately if your symptoms worsen or if you develop any numbness, tingling, dizziness, shortness of breath, difficulty breathing, chest pain, blurry vision, loss of vision, nausea, vomiting, abdominal pain, fever, chills, back pain, or any other complaints. Please see the information below about our Patient Portal. If you are not yet enrolled in the [facility] Patient Portal, you will receive an enrollment email invitation following your visit to any [facility] [place] [place]. You may also self-enroll in the Patient Portal by visiting our website: [email or web address] The following information is required to access the Patient Portal: - [place] [facility] [place] - Your personal home email address (must match what is in your electronic medical record, Registration staff can assist with this) - Name - Date of Capabilities of the Patient Portal: - Message some providers - View upcoming appointments - Access your health summary, medical history, and visit history - View current conditions and allergies - View procedure and lab results - View your medications, including guidelines, side effects, and precautions - Complete pre-appointment questionnaires requested by your provider - Ready summary reports of your office visits and procedures To access the Patient Portal Mobile [employer], follow these directions: - Search [employer] in the [employer] Store or [employer] - Download the [employer] - Search for [facility] - Enter your login/password Prescriptions: New azithromycin 250 mg tablet See Rx Instructions .ROUTE .COMPLEX Qty: 6 0RF Rx Instructions: For 250 mg dose pack: take 500 mg today (day 1), then 250 mg for 4 days (days 2-5) benzonatate 100 mg capsule 100 mg PO BID PRN (Reason: cough) 7 Days Qty: 14 0RF naproxen 500 mg tablet 500 mg PO BID 7 Days Qty: 14 0RF No Action albuterol sulfate [ProAir HFA] 90 mcg/actuation HFA aerosol inhaler 1 inh inhalation QID PRN (Reason: shortness of breath or wheezing) Qty: 8.5 0RF lidocaine 5 % adhesive patch,medicated 1 patch topical DAILY PRN (Reason: pain) Qty: 15 0RF Rx Instructions: leave on most painful area for up to 12 hrs Cortisporin-TC 3.3-3-10-0.5 mg/mL drops,suspension 4 drp otic (ear) left QID 7 Days Qty: 10 0RF naproxen 500 mg tablet 500 mg PO BID PRN (Reason: pain) 7 Days Qty: 14 0RF qzeljoro-nrmwknanu-GB 3.5-10,000-1 mg/mL-unit/mL-% drops,suspension 4 drp otic (ear) left QID 7 Days Qty: 10 0RF hydrocodone-acetaminophen 5-325 mg tablet 1 tab PO Q4-6H PRN (Reason: pain) Qty: 30 0RF Rx Instructions: Partial Fill upon patient request. (DME) Donut seat cushion See Rx Instructions .Route .MEDSUPPLY Qty: 1 0RF Rx Instructions: As directed Referrals: Ariana Montgomery MD [Primary Care Provider] - Stand Alone Forms: Work/School Release Interventions: ED Discharge Assessment Last Done: 08/20/24 07:19 Discharge Date/Time: 08/20/24 07:20 Print Language: [place]
[2024-08-20] MEDS: Cyclobenzaprine HCl 5 MG TABLET PO (07:10)
[2024-08-20] MEDS: Ketorolac Tromethamine 15 MG/ML VIAL IM (07:14)
[2024-08-20 07:19] VITALS: BP 158/86; PULSE 80; RESP 16; TEMP 36.9; O2SAT 98
== END 2024-08-20 07:20 | disposition home or self-care (01) ==
PROVIDERS: Emergency Provider Emergency Medicine; PCP Internal Medicine
DX: M94.0 Chondrocostal junction syndrome [Tietze] (principal); R05.9 Cough, unspecified; J06.9 Acute upper respiratory infection, unspecified
CPT/HCPCS: 36415; 71046; 80048; 80076; 81003; 83690; 85025; 96372; 99284; J1885

== ENCOUNTER → 2024-08-20 03:10 | Outpatient (BNV) | payer OTHER, SELFPAY | PROVIDERS: Emergency Provider Emergency Medicine; PCP Internal Medicine; Visit Provider Radiology Diagnostic Radiology | DX: R05.9 Cough, unspecified (principal) | CPT/HCPCS: 71046 ==

== ENCOUNTER 2025-01-12 11:53 | Outpatient (REF) | payer MEDICAID, SELFPAY ==
--- NOTE | ~2025-01-12 | XR_ITS ---
EXAMINATION: XR RIBS, RIGHT CLINICAL INFORMATION: 2 years ago injury to right ribs COMPARISON: August 20, 2024 TECHNIQUE: 3 views of the right ribs were obtained. FINDINGS: There is focal callus involving the anterolateral right eighth and ninth ribs consistent with healed fractures. No acute abnormality is evident. XR/XR ribs RT 2V IMPRESSION: Healed anterolateral right eighth and ninth rib fractures Electronically signed by: Red Kauffman MD 01/12/2025 12:41 PM EDT
[2025-01-12 12:14] LABS: MANUAL DIFF FLAG NO
[2025-01-12 12:45] LABS: Hematocrit 42.1 % (42.0-52.0); Hemoglobin 14.4 g/dl (14.0-18.0); Imm Gran Abs Auto 0.02 X10*3/uL (0.00-0.03); Imm Gran Pct Auto 0.4 % (0.0-0.4); Lymphocytes Absolute Auto 1.7 X10*3/uL (1.2-4.9); Mean Corpuscular HGB Conc 34.2 g/dl (31.0-36.0); Mean Corpuscular Hemoglobin 29.4 pg (27.0-33.0); Mean Corpuscular Volume 85.9 fL (80.0-98.0); NRBC Abs Auto 0.000 X10*3/uL (0.0-0.012); NRBC Pct Auto 0.0 /100WBC (0.0-0.2); Platelet Count 256 X10*3/uL (160-400); Red Blood Count 4.90 X10*6/uL (4.60-5.80); White Blood Count 5.4 X10*3/uL (4.8-10.8)
--- OUTSIDE RECORDS SUMMARY | 2025-01-12 12:49 | XMS_ITS | Clinical Summary ---
Author Organization [employer] Address [address] [place] [address] Care Team Providers Care Junior Copywriter Name Role Phone Jose Eduardo Borden CNP Primary Care Provider +1 -[phone] Allergies No known active allergies Medications hydroCHLOROthiazi de 12.5 MG tabletIndications :Primary hypertension Take 2 tablets (25 mg) by mouth Once per day. 60 tablet 11 5 01/01/20 26 Active Blood Pressure kitIndications:Pr imary hypertension 1 kit Once per day. 1 kit 5 Active Diclofenac Sodium 1 % gelIndications:Ri b pain Apply 1 Units topically if needed each day (for pain). 50 g 5 Active Encounters Date Type Department Care Team Description 12/31/2024 1:30 PM EDT Office Visit [facility] [address] [place] [phone] Jose Eduardo Borden CNP Encounter to establish care (Primary Dx); Healthcare maintenance; Encounter for screening for malignant neoplasm of colon; Primary hypertension; Rib pain; Venereal disease screening; Onychomycosis 12/31/2024 Patient Outreach [facility] [address] [place] [address] [phone] Dalton Carrera Care Coordination (CHW outreach for SDOH PT-1 and food needs-LVM ) 12/31/2024 Telephone [facility] [address] [place] [address] Jose Eduardo Borden CNP 12/31/2024 Travel 12/30/2024 Telephone [facility] [address] [place] [address] [place] Chart Prep 12/24/2024 Patient Outreach [facility] [address] [place] [address] Jose Eduardo Borden CNP Pre-visit Planning (SDOH was already completed) 12/07/2024 Telephone [facility] [address] [place] [address] Frank Resendiz MD telephone call 11/26/2024 Patient Outreach [facility] [address] [place] [address] Arlette Carranza DO Pre-visit Planning ((SDOH screening positive tobacco screening negative) ) from Last 3 Months Immunizations Immunization Administration Dates Next Due Influenza injectable quadrivalent preservative f ree 05/28/2022 Family History Medical History Relation Name Comments Diabetes Father metastatic breast cancer Sister Relation Name Status Comments Father Sister Social History Tobacco Use Types Packs/Day Years Used Date Smoking Tobacco: Never Smokeless Tobacco: Never Tobacco Cessation:Counseling Given: Not Answered Alcohol Use Standard Drinks/Week Comments Never 0 (1 standard drink = 0.6 oz pur e alcohol) Depression Answer Date Recorded Patient Health Questionnaire-9 Score 5 12/31/2024 Patient Health Questionnaire-9 Score 5 12/31/2024 Last PHQ-9: Questionnaire Data Not on file 0 12/31/2024 Housing Stability Answer Date Recorded What is your housing situation today? I do not have housing (Staying with others, in a hotel, in a assisted, living outside on the street, on a beach, in a car, or in a park 11/26/[address] you li ve. Do you have problems with any of the following? None of the above 11/26/2024 Food Insecurity Answer Date Recorded Within the past 12 months, y ou worried that your food would run out before you got money to buy more: Sometimes True 2024 Within the past 12 months,th e food you bought just didn't last and you didn't have enough money to get more: Often true 12/31/2024 Transportation Answer Date Recorded In the past 12 months, has l ack of transportation kept you from medical appts, meetings, work or from getting things needed for daily living? Yes, it has kept me from medical appointments or getting medications. 12/31/2024 Utilities Answer Date Recorded In the past 12 months, has t he electric, gas, oil or water [employer] threatened to shut off services in your home? No 11/26/2024 Depression Answer Date Recorded Patient Health Questionnaire-2 Score 2 12/31/2024 Internet Access Answer Date Recorded Internet Access Q1 No 12/31/2024 Internet Access Q2 Not on file 12/31/2024 Comments Unknown Sex and Gender Information Value Date Recorded Sex Assigned at Unknown 12/06/2024 9:59 AM EDT Legal Sex Male 2:11 AM EDT Gender Identity Choose not to disclose 9:59 AM EDT Sexual Orientation Don't know 12/06/2024 9: 59 AM EDT Last Filed Vital Signs Vital Sign Reading Time Taken Comments Blood Pressure 170/110 12/31/2024 1:23 PM EDT Pulse 89 12/31/2024 1:23 PM EDT Temperature 37 C (98.6 F) 12/31/2024 1:23 PM EDT Respiratory Rate 20 12/31/2024 1:23 PM EDT Oxygen Saturation 98% 12/31/2024 1:23 PM EDT Inhaled Oxygen Concentration - - Weight 108 kg (237 lb 12.8 oz) 12/31/2024 1:23 P M EDT Height 180.3 cm (5' 11 ) 12/31/2024 1:23 PM EDT Body Mass Index 33.17 12/31/2024 1:23 PM EDT Plan of Treatment Upcoming Encounters Date Type Department Care Team (Late st Contact Info) Description 01/18/2025 10:00 AM EDT Clinical Support [facility] [address] [place] [address] 05/02/2025 9:45 AM EST Office Visit [facility] [address] [place] [address] Aysha Peck, OD [address] [place] [address] Health Maintenance Due Date Last Done Comments CT Colonography 1966 Colonoscopy 1966 Colorectal Cancer Screening 1966 FIT DNA/Cologuard 1966 FIT 1966 FOBT 1966 HIV Screening 1966 Lipid Panel 1966 Sigmoidoscopy 1966 Hepatitis C Screening 1984 DTaP/Tdap/Td Vaccines (1 - Tdap) 1985 Hepatitis B Vaccines (1 of 3 - 19+ 3-dose series) 1985 Pneumococcal Vaccine: 50+ Years (1 of 1 - PCV) 2016 Zoster Vaccines (1 of 2) 2016 COVID-19 Vaccine (4 - 2023-2 5 season) 2024 05/28/2022, 01/10/2021, 12/20/2020 Influenza Vaccine (#1) 2025 05/28/2022 Alcohol/Substance Use Screening 12/31/2025 12/31/2024 Depression Screening 12/31/2025 12/31/2024, 12/31/2024 Disability Screening 12/31/2025 12/31/2024 SDOH Screening 12/31/2025 12/31/2024 Tobacco Screening 12/31/2025 12/31/2024 RSV Patients and Patients Aged 60 years or older (1 - 1-dose 75+ series) 2041 HIB Vaccines Aged Out No longer eligi ble based on patient's age to complete this topic HPV Vaccines Aged Out No longer eligi ble based on patient's age to complete this topic Hepatitis A Vaccines Aged Out No long er eligible based on patient's age to complete this topic IPV Vaccines Aged Out No longer eligi ble based on patient's age to complete this topic Meningococcal B Vaccine Aged Out No l onger eligible based on patient's age to complete this topic Meningococcal Vaccine Aged Out No rahel mercy eligible based on patient's age to complete this topic RSV under 20 months Aged Out No longe r eligible based on patient's age to complete this topic Rotavirus Vaccines Aged Out No longer eligible based on patient's age to complete this topic Procedures Procedure Name Priority Date/Time Associated Diagnosis Comments XR RIBS 2 VIEWS RIGHT Routine 01/12/2025 12:11 PM EDT Rib pain CBC WITH AUTO DIFFERENTIAL Routine 01/12/2025 12:04 PM EDT Encounter to establish care Healthcare maintenance from Last 3 Months Results * XR Ribs 2 Views Right (01/12/2025 12:11 PM EDT) Anatomical Region Laterality Modality Rib, Abdomen Right Radiographic Chio ging 01/12/2025 12:1 1 PM EDT Narrative 01/12/2025 12:44 PM EDT [address] [address] XRay Report Signed Patient: Hollie Lopez MR#: [id number] : 1965 Acct:[id number] Age/Sex: 59 / M ADM Date: 01/12/25 Loc: HO.LAB Attending Dr: Jose Eduardo Borden STILL WORKER HELPER Ordering Physician: Jose Eduardo Borden Date of Service: 01/12/25 Procedure(s): XR ribs RT 2V Accession Number(s): [id number] cc: Jose Eduardo Borden EXAMINATION: XR RIBS, RIGHT CLINICAL INFORMATION: 2 years ago injury to right ribs COMPARISON: August 20, 2024 TECHNIQUE: 3 views of the right ribs were obtained. FINDINGS: There is focal callus involving the anterolateral right eighth and ninth ribs consistent with healed fractures. No acute abnormality is evident. XR/XR ribs RT 2V IMPRESSION: Healed anterolateral right eighth and ninth rib fractures Electronically signed by: Red Kauffman MD 01/12/2025 12:41 PM EDT Dictated By: Red Kauffman MD Signed By: <Electronically signed by Red Kauffman MD in OV> 01/12/25 1241 DD/ 1211 TD/TT: 01/12/25 1229 Irish Moss Bleacher: Procedure Note Donotuseinterpreter, Image - 01/12/[address] [address] XRay Report Signed Patient: Hollie LopezMR#: [id number] : 1965Acct:[id number] Age/Sex: 59 / MADM Date: 01/12/25 Loc: HO.LAB Attending Dr: Jose Eduardo Borden STILL WORKER HELPER Ordering Physician: Jose Eduardo Borden Date of Service: 01/12/25 Procedure(s): XR ribs RT 2V Accession Number(s): [id number] cc: Jose Eduardo Borden EXAMINATION: XR RIBS, RIGHT CLINICAL INFORMATION: 2 years ago injury to right ribs COMPARISON: August 20, 2024 TECHNIQUE: 3 views of the right ribs were obtained. FINDINGS: There is focal callus involving the anterolateral right eighth and ninth ribs consistent with healed fractures. No acute abnormality is evident. XR/XR ribs RT 2V IMPRESSION: Healed anterolateral right eighth and ninth rib fractures Electronically signed by: Red Kauffman MD 01/12/2025 12:41 PM EDT RP Dictated By: Red Kauffman MD Signed By: <Electronically signed by Red Kauffman MD in OV> 01/12/25 1241 DD/ 1211 TD/TT: 01/12/25 1229 Irish Moss Bleacher: [facility] DIGITAL ASSOCIATE IMG XR PROCEDURES Final R esult * CBC auto differential (01/12/2025 12:04 PM EDT) White Blood Count 5.4 4.8 - 10.8 X10*3/uL [facility] Red Blood Count 4.90 4.60 - 5.80 X10*6/uL [facility] Hemoglobin 14.4 14.0 - 18.0 g/dl [facility] Hematocrit 42.1 42.0 - 52.0 % [facility] Mean Corpuscular Volume 85.9 80.0 - 98.0 fL [facility] Mean Corpuscular Hemoglobin 29.4 27.0 - 33.0 pg [facility] Mean Corpuscular HGB Conc 34.2 31.0 - 36.0 g/dl [facility] Red Cell Distribution Width 13.0 11.0 - 16.0 % [facility] Platelet Count 256 160 - 400 X10*3/uL [facility] Mean Platelet Volume 10.6 9.4 - 12.4 fL [facility] Neutrophils Percent Auto 57.7 45 - 73 % [facility] Imm Gran Pct Auto 0.4 0.0 - 0.4 % [facility] Lymphocytes Percent Auto 32.3 20 - 40 % [facility] Monocytes Percent Auto 7.5 2 - 11 % [facility] Eosinophils Percent Auto 1.5 0 - 4 % [facility] Basophils Percent Auto 0.6 0 - 2 % [facility] NRBC Pct Auto 0.0 0.0 - 0.2 /100WBC [facility] Neutrophils Absolute Auto 3.1 2.0 - 8.3 x10*3/uL [facility] Imm Gran Abs Auto 0.02 0.00 - 0.03 X10*3/uL [facility] Lymphocytes Absolute Auto 1.7 1.2 - 4.9 X10*3/uL [facility] Monocytes Absolute Auto 0.4 0.1 - 1.2 X10*3/uL [facility] Eosinophils Absolute Auto 0.1 0.0 - 0.4 X10*3/uL [facility] Basophils Absolute Auto 0.0 0.0 - 0.2 X10*3/uL [facility] NRBC Abs Auto 0.000 0.0 - 0.012 X10*3/uL [facility] Blood Venous blood specimen / Unknown 01/12/2025 12:04 PM EDT 01/12/2025 12:11 PM EDT Ericcorrie Borden DIGITAL ASSOCIATE LAB BLOOD ORDERABLES Lorna l Result [facility] [address] [place], [place] [phone] from Last 3 Months Insurance [facility] C3 Care Teams Junior Copywriter Relationship Specialty Start Date End Date Jose Eduardo Borden CNP [address] [place] [address] [phone] PCP - General Family Medicine 12/31/24
--- OUTSIDE RECORDS SUMMARY | 2025-01-12 12:49 | XMS_ITS | Patient Health Record ---
Author Organization [facility] Address [address] [place] [address] Care Team Providers Care Induction Coordination Power Engineer Name Role Phone Lyndajasvir Ariana Primary Care Provider Unavailab Jair Zavaleta Jr Unavailable Reason For Referral No Information Medications Medication SIG (Take, Route, Frequency, Duration) Notes Start Date End Date Status Tamsulosin HCl 0.4 MG 1 capsule Orally O nce a day Active Colyte with Flavor Packs 240 GM As directed Orally Over the specified time. for 1 day(s) 08/28/2018 Active Immunizations Vaccine Route Administration Date Status Comme nts Influenza Unknown 08/28/2018 Refused Social History Tobacco Use: Social History Observation Description Date Details (start date - stop date) Never Smoker NA - NA Tobacco Use/Smoking Question Answer Notes Patient is a nonsmoker Alcohol Screen Question Answer Notes Did you have a drink containing alcohol in the p ast year? No Points 0 Interpretation Negative Problems Problem Type SNOMED Code ICD Code Onset Dates Problem Status W/U Status Risk Notes Problem [id number] Colon cancer screening (Z12.11) Active confirmed Plan Of Treatment Future Test Test Name Order Date COLONOSCOPY 08/28/2018 Insurance Providers Payer Name Payer Address Payer Phone Subscriber Number Group Number Insured Name Patient Relationship to Insured Coverage Start Date Coverage End Date [facility] [address] [place] [address] [id number] ASHLEE JOE Self - patient is the insured Medical (General) History Medical History History ICD Code BPH Surgical History Surgery Date(Month/Year) hernia repair 1982 cystoscopy
--- OUTSIDE RECORDS SUMMARY | 2025-01-12 12:49 | XMS_ITS | Clinical Summary ---
Author Organization [address] [facility] Address [address] [place] [address] Phone Care Team Providers Care Supply Chain Procurement Manager Name Role Phone Jose Eduardo Borden NP Primary Care Provider +1- [phone] Social History Tobacco Use Types Packs/Day Years Used Date Smoking Tobacco: Never Assessed Sex and Gender Information Value Date Recorded Sex Assigned at Not on file Legal Sex Male 4:51 PM EST Gender Identity Not on file Sexual Orientation Not on file Plan of Treatment Health Maintenance Due Date Last Done Comments DTaP,Tdap,and Td Vaccines (1 - Tdap) 1985 Hepatitis B Vaccines (1 of 3 - 19+ 3-dose series) 1985 Pneumococcal Vaccine: 50+ Ye ars (1 of 1 - PCV) 2016 Zoster Vaccines (1 of 2) 2016 Cholesterol Screening (Lipid Panel) 05/15/2022 Colorectal Cancer Screening: Colonoscopy 05/15/2022 HIV Screening 05/15/2022 Hepatitis C Screening 05/15/2022 Social Influencers of Health Screening 05/15/2022 COVID-19 Vaccine ( - 2023-2 5 season) 2024 Depression Screening 06/16/2024 Influenza Vaccine (#1) 2025 HIB Vaccines Aged Out No longer eligi [...] on patient's age to complete this topic MMR Vaccines Aged Out No longer eligi ble based on patient's age to complete this topic Meningococcal ACWY Vaccine Aged Out N o longer eligible based on patient's age to complete this topic Meningococcal B Vaccine Aged Out No l onger eligible based on patient's age to complete this topic RSV Immunization Patients Un leticia 20 months Aged Out No longer eligible b ased on patient's age to complete this topic Varicella Vaccines Aged Out No longer eligible based on patient's age to complete this topic Insurance MEDICAID - [place] Care Teams Supply Chain Procurement Manager Relationship Specialty Start Date End Date Jose Eduardo Borden NP [address] [place] [phone] PCP - General Family Medicine 01/04/25
[2025-01-12 13:07] LABS: Hemoglobin A1C 141.4692 umol/L; Total Hemoglobin (HGBA1C) 3903.3088 umol/L
[2025-01-12 13:54] LABS: Alanine Aminotransferase 50 U/L (0-40); Albumin Level 4.7 g/dL (3.5-5.0); Alkaline Phosphatase 82 U/L (39-117); Anion Gap 13 (12-20); Aspartate Amino Transferase 28 U/L (5-37); Blood Urea Nitrogen 17 mg/dL (9-16); Calcium 9.3 mg/dL (8.4-10.2); Carbon Dioxide 27 mmol/L (22-29); Chloride 109 mmol/L (96-108); Cholesterol 211 mg/dL (<200); Estimated Glomerular Filt Rate 58; HDL Cholesterol 32 mg/dL (>40); Potassium 3.7 mmol/L (3.3-5.1); Sodium 145 mmol/L (135-145); Total Protein 7.9 g/dL (6.5-8.0); Triglycerides 248 mg/dL (<150)
[2025-01-12 14:26] LABS: Prostate Specific Antigen 0.45 ng/mL (<0.05-4.0)
[2025-01-13 08:07] LABS: Syphilis Screen Nonreactive (Nonreactive)
[2025-01-13 08:26] LABS: HBS Num1 208.93 mIU/mL (0-7.99); HBc Num1 6.43 S/CO (0.00-0.79); HBsAGNum1 0.45 S/CO (0.00-0.99); HIV Num 1 0.05 S/CO (0.00-0.99); Hepatitis B Surface Antigen Negative (Negative); ~HepC Num1 0.09 S/CO (0.00-0.79); ~Hepatitis B Surface Antibody REACTIVE (Nonreactive); ~Hepatitis C Antibody Nonreactive (Nonreactive)
[2025-01-13 10:37] LABS: HBc Num2 6.27 S/CO; HBc Num3 6.22 S/CO
== END 2025-01-12 11:54 | disposition home or self-care (01) ==
LOC: HO.LAB 11:53
DX: Z11.4 Encounter for screening for human immunodeficiency virus [HIV] (principal); Z11.59 Encounter for screening for other viral diseases; Z11.3 Encounter for screening for infections with a predominantly sexual mode of transmission; Z00.00 Encounter for general adult medical examination without abnormal findings; R07.81 Pleurodynia; Z76.89 Persons encountering health services in other specified circumstances
CPT/HCPCS: 36415; 71100; 80053; 80061; 83036; 84153; 84443; 85025; 86704; 86706; 86780; 86803; 87340; 87389

== ENCOUNTER → 2025-01-12 12:11 | Outpatient (BNV) | payer MEDICAID, SELFPAY | PROVIDERS: Visit Provider Radiology Diagnostic Radiology | DX: S22.41XD Multiple fractures of ribs, right side, subsequent encounter for fracture with routine healing (principal) | CPT/HCPCS: 71100 ==

== ENCOUNTER 2025-06-11 20:58 | Emergency (ER) | payer MEDICAID, SELFPAY ==
--- NOTE | ~2025-06-11 | XR_ITS ---
CLINICAL HISTORY: cough, rib pain, shortness of breath Chest X-ray, 2 Views COMPARISON: CR - XR CHEST 2V - 08/20/24 03:21 EST FINDINGS: No consolidation. No pleural effusion. No pneumothorax. No cardiomegaly. No acute fracture. IMPRESSION: No acute findings. This document has been electronically signed by: Andrea Doherty MD on 06/11/2025 22:12:37
[2025-06-11 21:00] VITALS: BP 184/106; PULSE 91; RESP 18; TEMP 36.4; O2SAT 96; BMI 32.8
[2025-06-11 22:14] LABS: Resp Syncy Virus RNA Qual PCR NEGATIVE (Negative); SARS COV2 PCR INHOUSE NEGATIVE (Negative)
[2025-06-11 23:46] VITALS: BP 134/87; PULSE 90; RESP 16; TEMP 36.9; O2SAT 97
--- OUTSIDE RECORDS SUMMARY | 2025-06-12 00:04 | XMS_ITS | Clinical Summary ---
Author Organization [address] [facility] Address [address] [place] [address] Phone Care Team Providers Care Staff Counselor Name Role Phone Jose Eduardo Borden NP Primary Care Provider +1- [phone] Social History Tobacco Use Types Packs/Day Years Used Date Smoking Tobacco: Never Assessed Sex and Gender Information Value Date Recorded Sex Assigned at Not on file Legal Sex Male 4:51 PM EST Gender Identity Not on file Sexual Orientation Not on file Plan of Treatment Health Maintenance Due Date Last Done Comments Colorectal Cancer Screening: Colonoscopy 1966 DTaP,Tdap,and Td Vaccines (1 - Tdap) 1985 Hepatitis B Vaccines (1 of 3 - 19+ 3-dose series) 1985 Pneumococcal Vaccine: 50+ Ye ars (1 of 1 - PCV) 2016 Zoster Vaccines (1 of 2) 2016 Cholesterol Screening (Lipid Panel) 05/15/2022 HIV Screening 05/15/2022 Hepatitis C Screening 05/15/2022 Social Influencers of Health Screening 05/15/2022 Depression Screening 06/16/2024 COVID-19 Vaccine (1 - 2024-2 6 season) 2025 Influenza Vaccine (#1) 2025 RSV Immunization Adult Patie nts (1 - 1-dose 75+ series) 2041 HIB [...] topic Insurance MEDICAID - [place] Care Teams Staff Counselor Relationship Specialty Start Date End Date Jose Eduardo Borden NP [address] [place] [address] [phone] PCP - General Family Medicine 01/04/25
--- OUTSIDE RECORDS SUMMARY | 2025-06-12 00:04 | XMS_ITS | Clinical Summary ---
Author Organization [employer] Address [address] [facility] 7[address] [place] [address] Care Team Providers Care Aerodynamics Engineer Name Role Phone Jose Eduardo Borden CNP Primary Care Provider [phone] Allergies No known active allergies Medications hydroCHLOROthiazid e 12.5 MG tabletIndications: Primary hypertension Take 2 tablets (25 mg) by mouth Once per day. 60 tablet 11 5 01/01/20 26 Active Diclofenac Sodium 1 % gelIndications:Rib pain Apply 1 Units topically if needed each day (for pain). 50 g 5 Active atorvastatin (Lipitor) 10 MG tabletIndications: Hyperlipidemia, unspecified hyperlipidemia type Take 1 tablet (10 mg) by mouth Once per day. 30 tablet 11 5 01/20/20 26 Active Blood Pressure kitIndications:Katerine renata hypertension 1 kit Once per day. 1 kit 5 Active Encounters Date Type Department Care Team Description 06/11/2025 Orders Only [facility] External Provider, [facility] 05/02/2025 Telephone [facility] [address] [place] [address] Aysha Peck OD 04/12/2025 Telephone [facility] [address] [place], [place] [phone] Jose Eduardo Borden CNP 04/12/2025 Telephone [facility] [address] [place], [place] [phone] Jaja Hernandez MA from Last 3 Months Immunizations Immunization Administration [...] with others, in a hotel, in a correction, living outside on the street, on a [...] t he electric, gas, oil or water company threatened to shut off services in your [...] Sign Reading Time Taken Comments Blood Pressure 139/110 01/19/2025 9:00 AM EDT Pulse 75 01/19/2025 9:00 AM EDT Temperature 36.4 C (97.6 F) 01/19/2025 9:00 AM EDT Respiratory Rate 20 01/19/2025 9:00 AM EDT Oxygen Saturation 98% 01/19/2025 9:00 AM EDT Inhaled Oxygen Concentration - - Weight 108 kg (238 lb 12.8 oz) 01/19/2025 9:00 A M EDT Height 180.3 cm (5' 11 ) 01/19/2025 9:00 AM EDT Body Mass Index 33.31 01/19/2025 9:00 AM EDT Plan of Treatment Upcoming Encounters Date Type Department Care Team (Late st Contact Info) Description 09/12/2025 1:30 PM EDT Office Visit [facility] [address] [place], [place] [phone] Aysha Peck, OD [address] [place] [address] Health Maintenance Due Date Last Done Comments CT Colonography 1966 Colonoscopy 1966 Colorectal Cancer Screening 1966 FIT DNA/Cologuard 1966 FIT 1966 FOBT 1966 Sigmoidoscopy 1966 DTaP/Tdap/Td Vaccines (1 - Tdap) 1985 Pneumococcal Vaccine: 50+ Years (1 of 1 - PCV) 2016 COVID-19 Vaccine ( - season) 2025 05/28/2022, 03/08/2021, 01/10/2021, Additional history exists Influenza Vaccine (#1) 2025 05/28/2022, 2008 Zoster Vaccines (2 of 2) 04/25/2025 02/28/2025 Alcohol/Substance Use Screening 12/31/2025 12/31/2024 Depression Screening 12/31/2025 12/31/2024, 01/01/20 25 SDOH Screening 12/31/2025 12/31/2024 Disability Screening 01/19/2026 01/19/2025 Tobacco Screening 01/19/2026 01/19/2025 Lipid Panel 01/12/2030 01/12/2025 RSV Patients and Patients Aged 60 years or older (1 - 1-dose 75+ series) 2041 HIV Screening Completed 01/12/2025 Hepatitis C Screening Completed 01/12/2025 HIB Vaccines Aged Out No longer eligi ble based on patient's age to complete this topic HPV Vaccines Aged Out No longer eligi ble based on patient's age to complete this topic Hepatitis A Vaccines Aged Out No long er eligible based on patient's age to complete this topic Hepatitis B Vaccines Discontinued IPV Vaccines Aged Out No longer eligi [...] Name Priority Date/Time Associated Diagnosis Comments XR CHEST 2 VIEWS Routine 06/11/2025 10:1 2 PM EST SARS COV2/INFLUENZA A/B AND RSV RNA QL NAAT Routine 06/11/2025 9:24 PM EST HEPATITIS C AB W/REFL TO HCV RNA, QN, PCR Routine 01/12/2025 12:04 PM EDT Encounter to establish care Healthcare maintenance HIV 1/2 ANTIGEN/ANTIBODY, FOURTH GENERATION W/RFL Routine 01/12/2025 12:04 PM EDT Encounter to establish care Healthcare maintenance LIPID PANEL, STANDARD Routine 01/12/2025 12:04 PM EDT Encounter to establish care Healthcare maintenance from Last 3 Months or Most Recently Relevant to Health Maintenance Results * XR Chest 2 Views (06/11/2025 10:12 PM EST) Anatomical Region Laterality Modality Chest Radiographic Chio ging 06/11/2025 10:1 2 PM EST Narrative 06/11/2025 10:14 PM EST [address] [address] XRay Report Signed Patient: Hollie Lopez MR#: [id number] : 1965 Acct:[id number] Age/Sex: 59 / M ADM Date: 06/11/25 Loc: HO.ED Attending Dr: Ordering Physician: Generic ED Physician Date of Service: 06/11/25 Procedure(s): XR chest 2V Accession Number(s): [id number] cc: Generic ED Physician; Eric Bordencorrie ROD POINTER Reason for Exam: cough, rib pain, shortness of breath CLINICAL HISTORY: cough, rib pain, shortness of breath Chest X-ray, 2 Views COMPARISON: CR - XR CHEST 2V - 08/20/24 03:21 EST FINDINGS: No consolidation. No pleural effusion. No pneumothorax. No cardiomegaly. No acute fracture. IMPRESSION: No acute findings. This document has been electronically signed by: Andrea Doherty MD on 06/11/2025 22:12:37 Dictated By: Andrea Doherty MD Signed By: <Electronically signed by Andrea Doherty MD in OV> 06/11/252212 DD/ 11 TD/TT: 06/11/252211 Oil Refinery Operator: Procedure Note Donotuseinterpreter, Image - 06/11/2025 [place] [address] XRay Report Signed Patient: Hollie LopezMR#: [id number] : 1965Acct:[id number] Age/Sex: 59 / MADM Date: 06/11/25 Loc: HO.ED Attending Dr: Ordering Physician: Generic ED Physician Date of Service: 06/11/25 Procedure(s): XR chest 2V Accession Number(s): [id number] cc: Generic ED Physician; Eric Bordencorrie ROD POINTER Reason for Exam: cough, rib pain, shortness of breath CLINICAL HISTORY: cough, rib pain, shortness of breath Chest X-ray, 2 Views COMPARISON: CR - XR CHEST 2V - 08/20/24 03:21 EST FINDINGS: No consolidation. No pleural effusion. No pneumothorax. No cardiomegaly. No acute fracture. IMPRESSION: No acute findings. This document has been electronically signed by: Andrea Doherty MD on 06/11/2025 22:12:37 Dictated By: Andrea Doherty MD Signed By: <Electronically signed by Andrea Doherty MD in OV> 06/11/252212 DD/ 11 TD/TT: 06/11/252211 Oil Refinery Operator: [facility] External Provider IMG XR PROCEDURES Final Result * (ABNORMAL) SARS-CoV-2 RNA, Influenza A/B, and RSV RNA, Ql NAAT (06/11/2025 9:24 PM EST) Influenza A PCR POSITIVE(A) Negative [facility] Influenza B PCR NEGATIVE Negative [facility] Resp Syncy Virus RNA Qual PCR NEGATIVE Negative [facility] SARS COV2 PCR NEGATIVE Negative [facility] Comment:All test results mus t be correlated with clinical findings.Negative results do not preclude SARS-CoV2, influenza Avirus, influenza B virus and/or RSV infectionand should not be used as the sole basis for treatment orother patient management decisions. Negative results must becombined with clinical observations, patient history, andepidemiological information.This test has not been evaluated for monitoring treatment ofinfection.This test has been authorized by the FDA under an EmergencyUse Authorization (EUA) for use by authorized laboratories.Testing performed on the [employer] GeneXpert utilizingreal-time RT-PCR.All SARS CoV2 and positive influenza A/B results arereported to [facility]. 06/11/2025 9:24 PM EST 06/11/2025 9:35 PM EST Generic External Data Provider LAB MICROBIOLOGY - GENERAL ORDERABLES Final Result [facility] [address] [place] [address] [phone] * Hepatitis C Antibody with Reflex to HCV, RNA, Quantitative, Real-Time PCR (01/12/2025 12:04 PM EDT) Hepatitis C Antibody Nonreactive Nonreactive [facility] Comment:Antibodies to HCV no t detected; does not exclude early acuteHCV infection. Blood Venous blood specimen / Unknown 01/12/2025 12:04 PM EDT 01/12/2025 12:11 PM EDT [facility] LAB BLOOD ORDERABLES Lorna l Result Performing Organization Address [facility] Co de Phone Number [facility] [address] [place] [phone] * HIV-1/2 Antigen and Antibodies, Fourth Generation, with Reflexes (01/12/2025 12:04 PM EDT) HIV AB/AG Nonreactive Nonreactive [facility] Comment:HIV-1 p24 Ag and/or HIV-1/HIV-2 Ab not detected.A test result that is nonreactive does not exclude thepossibility of exposure to or infection with HIV-1 and/orHIV-2. Nonreactive results in this assay for individualswith prior exposure to HIV-1 and/or HIV-2 may be due toantigen and antibody levels that are below the limit ofdetection of this assay.The [employer] HIV Ag/Ab Combo assay result andsupplemental assay results should be interpreted inconjunction with the patient's clinical presentation,history and other laboratory results. If the results areinconsistent with clinical evidence, additional testing issuggested to confirm the result. Blood Venous blood specimen / Unknown 01/12/2025 12:04 PM EDT 01/12/2025 12:11 PM EDT [facility] LAB BLOOD ORDERABLES Lrona l Result Performing Organization Address [facility]/ZIP Co de Phone Number [facility] [address] [place] [phone] [phone] * (ABNORMAL) Lipid Panel, Standard (01/12/2025 12:04 PM EDT) Triglycerides 248(H) <150 mg/dL [facility] Comment:Desirable Triglyceri de: less than 150 mg/dLBorderline High Triglyceride 150-199 mg/dLHigh Triglyceride: 200-499 mg/dLVery High Triglyceride: greater than or equal to 5OO mg/dL Cholesterol 211(H) <200 mg/dL [facility] Comment:Desirable Cholestero l: less than 200 mg/dLBorderline High Cholesterol: 200-239 mg/dLHigh Cholesterol: greater than 239 mg/dL LDL Cholesterol Calculated 130(H) <100 mg/dL [facility] Comment:Desirable LDL: less than 100 mg/dLNear Optimal/Above Optimal LDL: 110- 129 mg/dLBorderline High LDL: 130-159 mg/dLHigh LDL: 160-189 mg/dLVery High LDL: greater than or equal to 190 mg/dL HDL Cholesterol 32(L) >40 mg/dL [facility] Comment:Desirable HDL: great er than 40 mg/dL Note: This HDL assay may give artificially low results in patients with liver disease. Blood Venous blood specimen / Unknown 01/12/2025 12:04 PM EDT 01/12/2025 12:11 PM EDT Jose Eduardo Borden CNP LAB BLOOD ORDERABLES Lorna l Result [facility] [address] [place] [phone] from Last 3 Months or Most Recently Relevant to Health Maintenance Insurance [facility] C3 Care Teams Aerodynamics Engineer Relationship Specialty Start Date End Date Jose Eduardo Borden CNP PCP - General Family Medicine 12/31/24
--- OUTSIDE RECORDS SUMMARY | 2025-06-12 00:04 | XMS_ITS | Patient Health Record ---
Author Organization [facility] Address [address] [place] [phone] Care Team Providers Care Dyer Helper Name Role Phone Lyndajasvir Ariana Primary Care Provider Unavailab Jair Zavaleta Jr Unavailable Reason For Referral No Information Medications Medication SIG (Take, Route, Frequency, Duration) Notes Start Date End Date Status Tamsulosin HCl 0.4 MG Capsule Extended Release 1 capsule Orally Once a day Active Colyte with Flavor Packs 240 GM Solution Reconstituted As directed Orally Over the specified time.; Duration: 1 day(s) 08/28/2018 Active Immunizations Vaccine Route Administration Date Status Comme nts Influenza Unknown 08/28/2018 Refused Social History Tobacco Use: Social History Observation Description Date Details (start date - stop date) Never Smoker NA - NA Social History Drugs/Alcohol: Social Info Question Answer Notes Alcohol Screen Did you have a drink containing alcohol in the past year? No Points 0 Interpretation Negative Tobacco Use: Social Info Question Answer Notes Tobacco Use/Smoking Patient is a nonsmoker Additional Details Category Social Info Options Details Miscellaneous: Marital status: single Occupation: self employed Problems Problem Type SNOMED Code ICD Code Onset Dates Problem Status W/U Status Risk Notes Problem Colon cancer screening (881130292) Colon cancer screening (Z12.11) Active confirmed Plan Of Treatment Future Test Test Name Order Date COLONOSCOPY 08/28/2018 Insurance Providers Payer Name Payer Address Payer Phone Subscriber Number Group Number Insured Name Patient Relationship to Insured Coverage Start Date Coverage End Date [facility] [address] [place] [phone] [id number] ASHLEE JOE Self - patient is the insured Medical (General) History Medical History History ICD Code BPH Surgical History Surgery Date(Month/Year) hernia repair 1982 cystoscopy
--- OUTSIDE RECORDS SUMMARY | 2025-06-12 00:04 | XMS_ITS | Encounter Summary ---
Author Organization [employer] Address [address] [facility] [address] [place] [address] Care Team Providers Care Firing Pin Gauger Name Role Phone Jose Eduardo Borden DIANA Primary Care Provider [phone] Encounter Details Date Type Department Care Team (Late st Contact Info) Description 06/11/2025 Orders Only [facility] External Provider, [facility] Social History Tobacco Use Types Packs/Day Years Used Date Smoking Tobacco: Never Smokeless Tobacco: Never Alcohol Use Standard Drinks/Week Comments Never 0 [...] with others, in a hotel, in a intermediate, living outside on the street, on a [...] Don't know 12/06/2024 9: 59 AM EDT documented as of this encounter Plan of Treatment Upcoming Encounters Date Type Department Care Team (Late st Contact Info) Description 09/12/2025 1:30 PM EDT Office Visit [facility] [address] [place], [place] [phone] Cisco Aysha, OD [address] [place] [address] documented as of this encounter Procedures Procedure Name Priority Date/Time Associated Diagnosis Comments XR CHEST 2 VIEWS Routine 06/11/2025 10:1 2 PM EST SARS COV2/INFLUENZA A/B AND RSV RNA QL NAAT Routine 06/11/2025 9:24 PM EST documented in this encounter Results * XR Chest 2 Views (06/11/2025 10:12 PM EST) Anatomical Region Laterality Modality Chest Radiographic Chio ging 06/11/2025 10:1 2 PM EST Narrative 06/11/2025 10:14 PM EST [address] [address] XRay Report Signed Patient: Hollie Lopez MR#: [id number] : 1965 Acct:[id number] Age/Sex: 59 / M ADM Date: 06/11/25 Loc: .ED Attending Dr: Ordering Physician: Generic ED Physician Date of Service: 06/11/25 Procedure(s): XR chest 2V Accession Number(s): [id number] cc: Generic ED Physician; Jose Eduardo Borden ROLLING MACHINE OPERATOR AUTOMATIC Reason for Exam: cough, rib pain, shortness [...] in OV> 06/11/252212 DD/ 11 TD/TT: 06/11/252211 Drip Box Tender: Procedure Note Donotuseinterpreter, Michael - 06/11/2025 [place] [address] XRay Report Signed Patient: Hollie Lopez#: [id number] : 1965Acct:[id number] Age/Sex: 59 / MADM Date: 06/11/25 Loc: .ED Attending Dr: Ordering Physician: Generic ED Physician Date of Service: 06/11/25 Procedure(s): XR chest 2V Accession Number(s): [id number] cc: Generic ED Physician; Jose Eduardo Borden ROLLING MACHINE OPERATOR AUTOMATIC Reason for Exam: cough, rib pain, shortness [...] in OV> 06/11/252212 DD/ 11 TD/TT: 06/11/252211 Drip Box Tender: [facility] External Provider IMG XR PROCEDURES Final Result * (ABNORMAL) SARS-CoV-2 RNA, Influenza A/B, and RSV RNA, Ql NAAT (06/11/2025 9:24 PM EST) Influenza A PCR POSITIVE(A) Negative [facility] Influenza B PCR NEGATIVE Negative [facility] Resp Syncy Virus RNA Qual PCR NEGATIVE Negative [facility] SARS COV2 PCR NEGATIVE Negative [facility] Comment:All test results mus t be [...] use by authorized laboratories.Testing performed on the [employer] GeneXpert utilizingreal-time RT-PCR.All SARS CoV2 and positive influenza A/B results arereported to [facility]. 06/11/2025 9:24 PM EST 06/11/2025 9:35 PM EST us Generic External Data Provider LAB MICROBIOLOGY - GENERAL ORDERABLES Final Result [facility] [address] [place] [address] [phone] documented in this encounter Visit Diagnoses Not on filedocumented in this encounter Additional Health Concerns Assessment Noted Time PHQ-9 Depression Total Score: 5 01/01/20 25 1:26 PM EDT documented as of this encounter Care Teams Firing Pin Gauger Relationship Specialty Start Date End Date Jose Eduardo Borden CNP PCP - General Family Medicine 12/31/24 documented as of this encounter
--- NOTE | 2025-06-12 00:10 | ED_ITS ---
HPI - URI/Sore Throat General Chief Complaint: Upper Respiratory Symptoms Stated Complaint: Flu like symptoms Time Seen by Provider: 06/11/25 23:14 Source: patient Mode of arrival: ambulatory Limitations: no limitations History of Present Illness ED Provider: Dr. Pippa Srinivasan HPI Narrative: 60 year old male with history of untreated HTN presenting to the emergency department with three days of worsening cough, fever with alternating hot/cold sensations, and headache. The cough has been intense, resulting in severe bilateral lateral rib pain described as ?bad.? The patient has taken multiple ljth-yix-jweswdp (OTC) agents including ibuprofen, acetaminophen, Mucinex, NyQuil, and Robitussin without significant relief and reports vomiting after NyQuil/Robitussin. Last ibuprofen dose was approximately 0600 today. Poor oral intake due to nausea/vomiting. No prior history of asthma or chronic lung disease. Reports elevated home blood pressures and is known to have hypertension but is non-adherent with prescribed antihypertensive medication. No tobacco use; smokes marijuana. Sister has similar symptoms. Tested positive in the ED for Influenza A today. No influenza vaccine this season; did receive shingles vaccine because father from complications of shingles. Related Data Previous Rx's ?Medication ?Instructions ?Recorded lidocaine 5 % topical patch 1 patch topical DAILY PRN pain #15 06/12/21 ea albuterol sulfate 90 mcg/actuation 1 inh inhalation QI D PRN shortness 01/16/22 aerosol inhaler (ProAir HFA) of breath or wheezing #8. 5 grams hydrocodone 5 mg-acetaminophen 325 1 tab PO Q4-6H PRN pain #30 tabs 03/04/23 mg tablet Donut seat cushion #1 ea 03/07/23 naproxen 500 mg tablet 500 mg PO BID PRN pain 7 day s #14 07/27/23 tabs gablmuva-mfbecx-PV-thonzonm 3.3 4 drp otic (ear) left QID 7 days 07/27/23 mg-3 mg-10 mg-0.5 mg/mL ear #10 mL drops,susp (Cortisporin-TC) dkonkntn-ppartecjo-psuatikyn 3.5 4 drp otic (ear) left QID 7 days 07/28/23 mg-10,000 unit/mL-1 % ear #10 mL drops,susp azithromycin 250 mg tablet See Rx Instructions PO .COM PLEX #6 08/20/24 tabs benzonatate 100 mg capsule 100 mg PO BID PRN cough 7 d ays #14 08/20/24 caps naproxen 500 mg tablet 500 mg PO BID 7 days #14 tab s 08/20/24 albuterol sulfate 90 mcg/actuation 2 inh inhalation Q4 H PRN shortness 06/12/25 breath activated powder inhaler of breath #1 ea ondansetron 4 mg disintegrating 4 mg PO Q8H PRN nausea and 06/12/25 tablet vomiting #10 tabs Allergies Allergy/AdvReac Type Severity Reaction Status Date / Time codeine Allergy Unknown Unknown Verified 06/11/25 21:05 Review of Systems Review of Systems: as per HPI, full review of systems performed and negative but for the above mentioned pertinent positives and negatives. [facility] Past Medical History Medical History History of left inguinal hernia Rib fractures Surgical History History of hemorrhoidectomy (03/04/23) Hx of surgical procedure (~2018) H/O right inguinal hernia repair (12/13/19) Social History Social History Alcohol intake: never Patient Tobacco Use Status: Never used Tobacco Substance Use Type: Marijuana Advance Directives: No Advance Directives Information Provided: Yes Physical Exam Exam: Exam: GENERAL: Ill-Appearing, appears uncomfortable. SKIN: Normal skin color for ethnicity, warm, dry, no rashes noted. HEENT:? Normocephalic, atraumatic, no stridor, dry mucous membranes, dentition intact, EOMI. NECK: Soft, supple, full ROM, midline structures nontender, no step-offs, no deformities, no lymphadenopathy. CHEST: Heart regular tachycardia, no murmurs, symmetric chest rise and fall. PULMONARY: Clear to auscultation bilaterally, diminished at the bases, no labored breathing, no wheezes/rhales/rhonchi. ABDOMINAL: Soft, nondistended, nontender, positive bowel sounds in all quadrants. : Deferred. MUSCULOSKELETAL: Normal tone, full range of motion, no deformities, no peripheral edema. NEURO: Alert and oriented x3, CN II through XII intact, equal strength and sensation bilateral upper and lower extremities, no focal neurologic deficits.? PSYCHIATRIC: Flat affect, fluid speech, good eye contact and appropriate demeanor. Vital Signs: Vital Signs: Last Vital Signs Temp 98.3 F 06/12/25 04:04 Pulse 105 H 06/12/25 04:04 Resp 20 06/12/25 04:04 BP 155/100 H 06/12/25 04:04 Pulse Ox 96 06/12/25 04:04 O2 Del Method Room Air 06/12/25 04:04 BMI result Body Mass Index 32.8 Medications Administered Discontinued Medications Generic Name Dose Route Start Last Admin Trade Name Freq PRN Reason Stop Dose Admin Acetaminophen 975 mg 06/12/25 00:06 06/12/25 01:03 Acetaminophen 325 Mg Tablet PO 06/12/25 00:07 Not Given ONCE ONE Albuterol Sulfate 5 mg/ 0 mg 06/12/25 01:02 06/12/25 01:05 Albuterol/Ipratropium 3 ml INHALE 06/12/25 01:03 7.5 each ONCE ONE Administration Levalbuterol HCl 2.5 mg/ 0 mg 06/12/25 01:13 06/12/25 02:54 Ipratropium [place] 0.5 mg INHALE 06/12/25 01:14 8.5 dose ONCE ONE Administration Ondansetron HCl 4 mg 06/12/25 00:06 06/12/25 00:53 Ondansetron Odt 4 Mg Tab.Rapdis TRANSLINGU 06/12/25 00:07 4 mg ONCE ONE Administration Prochlorperazine Edisylate 10 mg 06/12/25 00:58 06/12/25 01:08 Prochlorperazine Edisylate 10 Mg/2 Ml Vial IM 06/12/25 00:59 10 mg ONCE ONE Administration Medical Decision Making Medical Decision Making MDM Narrative: Emergency Department Course ? Rapid flu test positive for Influenza A. ? Elevated blood pressure on arrival, improved with treatment and as pain decreased. ? Administered first doses of: analgesic/antipyretic (acetaminophen/ibuprofen combination), antiemetic for nausea/vomiting, and bronchodilator breathing treatment for wheezing. ? Additional antihypertensive medication given to further lower blood pressure. Assessment & Plan Diagnosis: Influenza A infection with associated cough, fever, headache, rib (chest wall) pain; Nausea/vomiting; Reactive airway with wheezing; Hypertension, uncontrolled and medication non-adherent. Plan: * Symptomatic management for influenza: continue alternating acetaminophen and ibuprofen around the clock for fever and pain. * Discharged with prescriptions for: * Antiemetic for nausea/vomiting. * Bronchodilator inhalation therapy for wheezing. * Analgesic/antipyretic as above. * Antihypertensive medication (single ED dose given in the ED). * First doses administered in the ED prior to discharge. * Pharmacy: [facility] on [facility] [address] (06/01) per patient preference. * Patient education provided on: * Importance of medication adherence for hypertension. * Consideration of annual influenza vaccination. * Follow-up: advised to see primary care physician for blood pressure management and ongoing care. Disposition Discharged home in stable condition after receiving initial medications and breathing treatment. Prescriptions sent electronically to [facility]. Differential Diagnosis Differential Diagnoses: The differential diagnosis associated with the presentation includes (as above) Admission/Observation Consideration of admission/observation: Escalation of care including admission/observation considered Lab Data MDM Lab Attestation statement: I reviewed the patient's lab results. Labs: Lab Results 06/11/25 Range/Units 21:24 Influenza Type A (PCR) POSITIVE A (Negative) Influenza Type B (PCR) NEGATIVE (Negative) RSV RNA Qual (PCR) NEGATIVE (Negative) SARS-CoV-2 RNA (RT-PCR) NEGATIVE (Negative) Independent Interpretation Interpretation: My independent interpretation of the chest x-ray reveals no consolidations, pulmonary edema, pleural effusion, pneumothorax, obvious bony abnormalities. Radiology Impression Discussion of test interpretation with radiology: I have reviewed the radiologist's reading. External Record Review External record reviewed: Inpatient record Prescription Management I considered prescription management with: Antiviral Chronic Conditions Patient?s care impacted by: Hypertension Discharge Plan Discharge Clinical Impression: Influenza A Patient Disposition: Home, Self-Care Instructions: Influenza (ED) Additional Instructions: Keep your mask on if you have to go into public for any reason while you are ill. Use Tylenol and Motrin around the clock for fever and body aches. Use Zofran (ondansetron) as needed for nausea. Use Albuterol (inhaler) as needed for cough and shortness of breath. Return to the emergency department with any new or worsening symptoms including: Worsening shortness of breath, continued fevers despite medications, inability to tolerate food or drink. Call 911 with any medical emergency. Prescriptions: New ondansetron 4 mg tablet,disintegrating 4 mg PO Q8H PRN (Reason: nausea and vomiting) Qty: 10 0RF albuterol sulfate 90 mcg/actuation aerosol powdr breath activated 2 inh inhalation Q4H PRN (Reason: shortness of breath) Qty: 1 0RF No Action albuterol sulfate [ProAir HFA] 90 mcg/actuation HFA aerosol inhaler 1 inh inhalation QID PRN (Reason: shortness of breath or wheezing) Qty: 8.5 0RF lidocaine 5 % adhesive patch,medicated 1 patch topical DAILY PRN (Reason: pain) Qty: 15 0RF Rx Instructions: leave on most painful area for up to 12 hrs Cortisporin-TC 3.3-3-10-0.5 mg/mL drops,suspension 4 drp otic (ear) left QID 7 Days Qty: 10 0RF naproxen 500 mg tablet 500 mg PO BID PRN (Reason: pain) 7 Days Qty: 14 0RF pbwvaztv-txfyqkqju-BO 3.5-10,000-1 mg/mL-unit/mL-% drops,suspension 4 drp otic (ear) left QID 7 Days Qty: 10 0RF azithromycin 250 mg tablet See Rx Instructions .ROUTE .COMPLEX Qty: 6 0RF Rx Instructions: For 250 mg dose pack: take 500 mg today (day 1), then 250 mg for 4 days (days 2-5) benzonatate 100 mg capsule 100 mg PO BID PRN (Reason: cough) 7 Days Qty: 14 0RF naproxen 500 mg tablet 500 mg PO BID 7 Days Qty: 14 0RF hydrocodone-acetaminophen 5-325 mg tablet 1 tab PO Q4-6H PRN (Reason: pain) Qty: 30 0RF Rx Instructions: Partial Fill upon patient request. (DME) Donut seat cushion See Rx Instructions .Route .MEDSUPPLY Qty: 1 0RF Rx Instructions: As directed Interventions: ED Discharge Assessment Last Done: 06/12/25 04:04 Discharge Date/Time: 06/12/25 04:05 Print Language: Taiwanese
[2025-06-12] MEDS: Albuterol Sulfate 5 MG, Albuterol/Iprat 2.5/0.5MG 3 ML 3 ML INHALE (01:05)
[2025-06-12 01:06] VITALS: PULSE 88; RESP 24; O2SAT 98
[2025-06-12 02:54] VITALS: PULSE 100; RESP 20; O2SAT 98
[2025-06-12] MEDS: levalbuterol HCL 2.5 MG, Ipratropium Bromide 0.5 MG INHALE (02:54)
[2025-06-12 02:58] VITALS: BP 155/100; PULSE 105; RESP 20; TEMP 36.8; O2SAT 96
[2025-06-12 04:04] VITALS: BP 155/100; PULSE 105; RESP 20; TEMP 36.8; O2SAT 96
== END 2025-06-12 04:05 | disposition home or self-care (01) ==
PROVIDERS: Emergency Provider Emergency Medicine
DX: J10.1 Influenza due to other identified influenza virus with other respiratory manifestations (principal); R05.9 Cough, unspecified; I10 Essential (primary) hypertension; Z03.818 Encounter for observation for suspected exposure to other biological agents ruled out
CPT/HCPCS: 71046; 87637; 94640; 96372; 99284; J0737

== ENCOUNTER → 2025-06-11 21:25 | Outpatient (BNV) | payer MEDICAID, SELFPAY | PROVIDERS: Visit Provider Radiology Diagnostic Radiology | DX: R05.9 Cough, unspecified (principal); R07.89 Other chest pain; R06.02 Shortness of breath | CPT/HCPCS: 71046 ==